=== PATIENT | male | born 1935 | race Caucasian/White ===

== ENCOUNTER 2018-06-22 17:43 | Emergency (ER) | payer MEDICARE, OTHER | END 2018-06-22 19:24 | disposition left against medical advice (07) | LOC: ER 17:44 | DX: K59.00 Constipation, unspecified (principal); Z53.21 Procedure and treatment not carried out due to patient leaving prior to being seen by health care provider ==

== ENCOUNTER 2018-07-09 06:05 | Inpatient (IN) | payer MEDICARE, OTHER ==
[2018-07-08 10:46] LABS: BASOPHILS # (AUTO) 0.1 X10'3 (0-0.2); BASOPHILS % (AUTO) 0.7 % (0-1); EOSINOPHILS # (AUTO) 0.2 X10'3 (0-0.9); EOSINOPHILS % (AUTO) 2.7 % (0-6); HEMATOCRIT 41.2 % (42.0-52.0); HEMOGLOBIN 13.9 g/dl (14.0-17.9); LYMPHOCYTES # (AUTO) 3.4 X10'3 (1.1-4.8); LYMPHOCYTES % (AUTO) 40.6 % (21-51); MEAN CORPUSCULAR HEMOGLOBIN 29.6 PG (27.0-31.0); MEAN CORPUSCULAR HGB CONC 33.8 g/dL (33.0-36.5); MEAN CORPUSCULAR VOLUME 87.6 FL (78-98); MEAN PLATELET VOLUME 7.3 FL (7.4-10.4); MONOCYTES # (AUTO) 0.4 X10'3 (0-0.9); MONOCYTES % (AUTO) 5.1 % (2-12); NEUTROPHILS # (AUTO) 4.3 X10'3 (1.8-7.7); NEUTROPHILS % (AUTO) 50.9 % (42-75); PLATELET COUNT 263 X10'3 (140-440); RED BLOOD COUNT 4.71 X10'6 (4.70-6.10); RED CELL DISTRIBUTION WIDTH 13.8 % (11.5-14.5); WHITE BLOOD COUNT 8.5 X10'3 (4.5-11.0)
[2018-07-08 10:50] LABS: ALBUMIN 3.8 G/DL (3.4-5.0); ANION GAP 8 (8-16); BLOOD UREA NITROGEN 15 MG/DL (7-18); CALCIUM 9.5 MG/DL (8.5-10.1); CHLORIDE 95 MMOL/L (99-107); CREATININE 1.25 MG/DL (0.60-1.10); GLUCOSE 76 MG/DL (70-104); POTASSIUM 4.8 MMOL/L (3.5-5.1); SODIUM 129 MMOL/L (135-145); TOTAL CARBON DIOXIDE 25.7 MMOL/L (24-32); eGFR 55 ML/MIN
[2018-07-08 10:55] LABS: PARTIAL THROMBOPLASTIN TIME 26 SECONDS (22-32)
[~2018-07-09] VITALS: Ht 172.7 cm; Wt 84.0 kg
[2018-07-09] VITALS (15 sets, daily range): BP systolic 92–132; BP diastolic 55–83
[2018-07-09] MEDS ORDERED: LORazepam 0.5 MG tablet PO PRN (06:25)
[2018-07-09] MEDS ORDERED: diphenhydrAMINE 25mg capsule PO PRN (06:25)
[2018-07-09] MEDS ORDERED: ATOR80TA PO (07:04)
[2018-07-09] MEDS ORDERED: DULO-31 PO (07:04)
[2018-07-09] MEDS ORDERED: CLOP75TA80 PO (07:04)
[2018-07-09] MEDS ORDERED: RANI-388 PO (07:04)
[2018-07-09] MEDS ORDERED: ASPI-1264 PO (07:04)
[2018-07-09] MEDS ORDERED: nitroGLYCERIN-Tridil 50MG/D5W 250 ML IV ONE ×2 (07:21→07:34)
[2018-07-09] MEDS ORDERED: LIDOcaine 1% (10mg/ml)w/preservative injection 20ml MDV ONE ×2 (07:22→07:34)
[2018-07-09] MEDS ORDERED: heparin 1,000unit/ml 10ml vial 10 ML ONE ×2 (07:22→07:34)
[2018-07-09] MEDS ORDERED: iohexol 350 MG/ML 50ML vial IV ONE ×3 (07:22→08:55)
[2018-07-09] MEDS ORDERED: fentaNYL/PF 50MCG/1 ML 2ML syringe ONE ×2 (07:22→07:34)
[2018-07-09] MEDS ORDERED: iohexol 350MG/ML 100ml bottle IV ONE ×2 (07:22→07:34)
[2018-07-09] MEDS ORDERED: midazolam 2 mg/2 ml injection ONE ×2 (07:22→07:34)
[2018-07-09] MEDS ORDERED: acetylcysteine 200 MG/ml 4ml vial PO ONE (07:25)
[2018-07-09] MEDS ORDERED: LIDOcaine/PRILOcaine 5gm cream TP ONE (07:25)
[2018-07-09] MEDS ORDERED: verapamil 2.5 mg/ml inj IV ONE (07:26)
[2018-07-09] MEDS ORDERED: heparin 1,000 UNITS/NS 500ml 500 ML ONE (08:56)
[2018-07-09 10:25] LABS: ISTAT HGB ART 12.6 g/dl (14.0-18.0); ISTAT Hct ART 37 %PCV (42-52); ISTAT O2 SATURATION ARTERIAL 97 % (95-98); ISTAT SOURCE ART
[2018-07-09] MEDS ORDERED: MESSAGE TO NURSING PO ONE ×2 (11:10→17:30)
[2018-07-09] MEDS ORDERED: dextrose 50%-water 50ml dispensing syringe IV PRN (11:10)
[2018-07-09] MEDS ORDERED: NUT.TX.IMPAIRED DIGEST FXN (Ensure Clear) 237 ML PO ONE (11:10)
[2018-07-09 11:21] LABS: ISTAT Hct MIX 38 %PCV (42-52); ISTAT O2 SATURATION MIX VENOUS 48 % (60-80); ISTAT SOURCE MIX
[2018-07-09] MEDS ORDERED: albumin (human) 25% 100 ML IV solution IV ONE (12:00)
[2018-07-09] MEDS ORDERED: sod chloride 0.9% 10ml flush syringe IV ONE (12:00)
[2018-07-09] MEDS ORDERED: sodium bicarbonate (8.4%) 1 mEq/ml syringe ONE ×3 (12:00)
[2018-07-09] MEDS ORDERED: rocuronium 10mg/ml inj IV ONE (12:00)
[2018-07-09] MEDS ORDERED: aminocaproic acid 250 MG/1 ML inj. ONE (12:00)
[2018-07-09] MEDS ORDERED: methylPREDNISolone sod. succ. 500mg inj ONE (12:00)
[2018-07-09] MEDS ORDERED: phenylephrine 10mg/ml inj. ONE (12:00)
[2018-07-09] MEDS ORDERED: heparin 1,000 units/ml 10ml inj ONE (12:00)
[2018-07-09] MEDS ORDERED: heparin 10,000 units/1 ML INJ ONE ×2 (12:00)
[2018-07-09] MEDS ORDERED: calcium chloride 100 MG/1 ML inj IV ONE (12:00)
[2018-07-09] MEDS ORDERED: LIDOcaine 2% (20 mg/ml) 5ml cardiac syringe ONE (12:00)
[2018-07-09] MEDS: normal saline 1,000 ML IV SCH ×2 (13:24→16:25)
--- NOTE | 2018-07-09 14:09 | NUR ---
CONTACTED , NEW ORDER GIVEN FOR PAIN MEDICATION.
[2018-07-09] MEDS ORDERED: acetaminophen 325mg tablet PO PRN (14:10)
[2018-07-09 15:58] LABS: ALBUMIN 3.8 G/DL (3.4-5.0); ANION GAP 7 (8-16); BLOOD UREA NITROGEN 14 MG/DL (7-18); BUN/CREATININE RATIO 11.5 (5.4-32.0); CALCIUM 9.2 MG/DL (8.5-10.1); CHLORIDE 98 MMOL/L (99-107); CREATININE 1.22 MG/DL (0.60-1.10); GLUCOSE 97 MG/DL (70-104); POTASSIUM 4.4 MMOL/L (3.5-5.1); SODIUM 132 MMOL/L (135-145); eGFR 57 ML/MIN
[2018-07-09 16:00] LABS: HEMOGLOBIN A1C 5.7 % (4.5-6.2)
[2018-07-09 16:05] LABS: ABG BASE EXCESS -2.6 mmol/L (-2.0-3.0); ABG OXYGEN SATURATION 96.8 % (95-98); ABG PCO2 (T) 33.1 mmHg (35.0-48.0); ABG PH (T) 7.421 (7.350-7.450); ABG PO2 (T) 82.4 mmHg (83-108); ALLEN'S TEST Positive; FCOHb 0.7 % (0.5-1.5); FMetHb 0.1 % (0.3-1.12); TOTAL HEMOGLOBIN 13.3 G/dl (14.0-18.0)
[2018-07-09 16:17] LABS: HEMATOCRIT 40.9 % (42.0-52.0); MEAN CORPUSCULAR HEMOGLOBIN 30.1 PG (27.0-31.0); MEAN CORPUSCULAR HGB CONC 34.3 g/dL (33.0-36.5); MEAN CORPUSCULAR VOLUME 87.7 FL (78-98); MEAN PLATELET VOLUME 7.4 FL (7.4-10.4); PLATELET COUNT 267 X10'3 (140-440); RED BLOOD COUNT 4.66 X10'6 (4.70-6.10); WHITE BLOOD COUNT 10.9 X10'3 (4.5-11.0)
[2018-07-09 16:34] LABS: PARTIAL THROMBOPLASTIN TIME 27 SECONDS (22-32)
--- NOTE | 2018-07-09 17:45 | NUR ---
Problems reprioritized. Patient report given, questions answered & plan of care reviewed with Hussein BOONE .
--- NOTE | 2018-07-09 17:45 | NUR ---
RECEIVED REPORT FROM SHORT STAY PATIENT WILL GO TO ROOM 310.
--- NOTE | 2018-07-09 18:15 | NUR ---
Patient in room MED 310. I have received report from Clarita and had the opportunity to ask questions and assume patient care.
[2018-07-09] MEDS ORDERED: ringers solution, lacted 1,000 ML IV ONE (19:58)
[2018-07-09] MEDS: metoprolol tartrate 12.5mg (1/2 tablet) PO SCH (20:01)
[2018-07-09] MEDS: ACETYLCYSTEINE 200 MG/1 ML 4 ML ORAL SOLUTION PO SCH (20:02)
[2018-07-10] VITALS (47 sets, daily range): BP systolic 67–146; BP diastolic 45–72
[2018-07-10] MEDS ORDERED: MESSAGE TO NURSING PO ONE ×3 (01:30→05:30)
[2018-07-10] MEDS: mupirocin 2% nasal ointment 1gm UD NS SCH ×3 (01:49→21:28)
[2018-07-10] MEDS ORDERED: gabapentin 400mg capsule PO ONE ×2 (05:00→05:30)
[2018-07-10] MEDS ORDERED: ROPIVAcaine 0.5% (5mg/ml) 30ml vial ONE (05:15)
[2018-07-10] MEDS ORDERED: ceFAZolin 1000mg inj ONE (05:15)
[2018-07-10] MEDS ORDERED: cefazolin/dext.iso 2gm/50ml 50 ML IV ONE (05:30)
[2018-07-10] MEDS ORDERED: insulin glargine (Lantus) pen - multi-dose SQ PRN (05:30)
[2018-07-10] MEDS ORDERED: vancomycin/NS 1 GM ADD-VANTAGE 250 ML IV ONE (05:30)
[2018-07-10 05:51] LABS: BASOPHILS # (AUTO) 0.1 X10'3 (0-0.2); BASOPHILS % (AUTO) 0.5 % (0-1); EOSINOPHILS # (AUTO) 0.2 X10'3 (0-0.9); EOSINOPHILS % (AUTO) 1.8 % (0-6); HEMATOCRIT 37.4 % (42.0-52.0); HEMOGLOBIN 12.6 g/dl (14.0-17.9); LYMPHOCYTES # (AUTO) 3.3 X10'3 (1.1-4.8); LYMPHOCYTES % (AUTO) 31.3 % (21-51); MEAN CORPUSCULAR HEMOGLOBIN 29.3 PG (27.0-31.0); MEAN CORPUSCULAR HGB CONC 33.8 g/dL (33.0-36.5); MEAN CORPUSCULAR VOLUME 86.9 FL (78-98); MEAN PLATELET VOLUME 7.1 FL (7.4-10.4); MONOCYTES # (AUTO) 0.3 X10'3 (0-0.9); MONOCYTES % (AUTO) 3.1 % (2-12); NEUTROPHILS # (AUTO) 6.6 X10'3 (1.8-7.7); NEUTROPHILS % (AUTO) 63.3 % (42-75); PLATELET COUNT 217 X10'3 (140-440); RED BLOOD COUNT 4.31 X10'6 (4.70-6.10); WHITE BLOOD COUNT 10.5 X10'3 (4.5-11.0)
[2018-07-10] MEDS ORDERED: famotidine 20mg tablet PO ONE (06:00)
[2018-07-10] MEDS ORDERED: LORazepam 2 mg/ml vial IV ONE (06:00)
--- NOTE | 2018-07-10 06:00 | NUR ---
Patient in room MED 310. I have received report from Obed Butts RN and had the opportunity to ask questions and assume patient care.
[2018-07-10 06:17] LABS: ALANINE AMINOTRANSFERASE 22 U/L (12-78); ALBUMIN 3.4 G/DL (3.4-5.0); ALBUMIN/GLOBULIN RATIO 1.2 (1.1-1.5); ALKALINE PHOSPHATASE 70 IU/L (46-116); ANION GAP 10 (8-16); ASPARTATE AMINO TRANSFERASE 36 U/L (10-37); BILIRUBIN,TOTAL 0.5 MG/DL (0.1-1.0); BLOOD UREA NITROGEN 13 MG/DL (7-18); BUN/CREATININE RATIO 10.2 (5.4-32.0); CALCIUM 9.1 MG/DL (8.5-10.1); CHLORIDE 98 MMOL/L (99-107); CHOL/HDL RATIO 2.1 (0.00-4.99); CHOLESTEROL 110 MG/DL (0-200); CREATININE 1.27 MG/DL (0.60-1.10); GLUCOSE 153 MG/DL (70-104); HDL CHOLESTEROL 52 MG/DL (35-60); LDL CHOLESTEROL 47 MG/DL (50-100); SODIUM 132 MMOL/L (135-145); TOTAL CARBON DIOXIDE 24.5 MMOL/L (24-32); TOTAL PROTEIN 6.2 G/DL (6.4-8.2); TRIGLYCERIDES 69 MG/DL (20-135); eGFR 54 ML/MIN
[2018-07-10] MEDS: normal saline 1,000 ML IV SCH ×3 (06:33→22:25)
--- NOTE | 2018-07-10 06:44 | NUR ---
OR here to talk to patient before surgery
[2018-07-10] MEDS ORDERED: midazolam 2 mg/2 ml injection ONE ×2 (06:50→18:54)
[2018-07-10] MEDS ORDERED: SUFENTANIL CITRATE 50 MCG/ML 2ml ampule IV ONE (06:50)
[2018-07-10] MEDS ORDERED: protamine sulf. 10mg/ml inj. IV ONE (07:01)
[2018-07-10] MEDS ORDERED: INSULIN R 100 UNIT in NS 100ML (1 UNIT/1 ML) BAG IV ONE (07:01)
[2018-07-10] MEDS ORDERED: isoflurane 100ml inhalation liquid IH ONE (07:01)
[2018-07-10] MEDS ORDERED: DOPamine/D5W 400mg/250ml bag IV ONE (07:01)
[2018-07-10] MEDS ORDERED: nitroGLYCERIN in D5W 50mg/250ml (Tridil) infusion IV ONE (07:01)
--- NOTE | 2018-07-10 07:15 | NUR ---
Pt. about to head to OR
[2018-07-10 07:45] LABS: ABG BASE EXCESS -2.3 mmol/L (-2.0-3.0); ABG OXYGEN SATURATION 99.6 % (95-98); ABG PCO2 41.4 mmHg (35.0-45.0); ABG PH 7.362 (7.350-7.450); ABG PO2 502.7 mmHg (60.0-100.0); CL (ABG) 100 mmol/L (99-107); FCOHb 0.3 % (0.5-1.5); FMetHb 0.3 % (0.3-1.12); GLUCOSE (ABG) 92 mg/dl (70-105); IONIZED CA (ABG) 1.15 mmol/L (1.03-1.32); K (ABG) 3.8 mmol/L (3.3-5.1); NA (ABG) 127 mmol/L (135-145)
[2018-07-10] MEDS ORDERED: atorvastatin 20mg tablet PO SCH (08:00)
[2018-07-10] MEDS ORDERED: aspirin 325mg tablet PO SCH (08:00)
[2018-07-10 08:35] LABS: ABG BASE EXCESS VENOUS -1.7 mmol/L; ABG HCO3 VENOUS 23.7 mmol/L; ABG PCO2 VENOUS 42.7 mmHg; ABG PO2 VENOUS 52.2 mmHg; CL (ABG) 99 mmol/L (99-107); FCOHb VENOUS 0.5 %; FHHb VENOUS 12.7 %; FMetHb VENOUS 0.3 %; FO2Hb VENOUS 86.5 %; GLUCOSE (ABG) 107 mg/dl (70-105); IONIZED CA (ABG) 1.15 mmol/L (1.03-1.32); K (ABG) 4.2 mmol/L (3.3-5.1); NA (ABG) 126 mmol/L (135-145); TOTAL HEMOGLOBIN 11.4 G/dl (14.0-18.0)
[2018-07-10] MEDS ORDERED: ipratropium/albuterol 3ml nebule IH PRN (08:50)
[2018-07-10 08:55] LABS: ABG PCO2 27.6 mmHg (35.0-45.0); ABG PO2 466.2 mmHg (60.0-100.0)
[2018-07-10 08:56] LABS: ABG BASE EXCESS -1.7 mmol/L (-2.0-3.0); ABG OXYGEN SATURATION 99.3 % (95-98); CL (ABG) 95 mmol/L (99-107); FCOHb 0.2 % (0.5-1.5); FMetHb 0.4 % (0.3-1.12); FO2Hb 98.7 % (94-100); GLUCOSE (ABG) 100 mg/dl (70-105); IONIZED CA (ABG) 0.94 mmol/L (1.03-1.32); K (ABG) 3.8 mmol/L (3.3-5.1); NA (ABG) 123 mmol/L (135-145); TOTAL HEMOGLOBIN 7.6 G/dl (14.0-18.0)
[2018-07-10 09:00] LABS: ABG BASE EXCESS VENOUS -0.2 mmol/L; ABG HCO3 VENOUS 23.4 mmol/L; ABG PCO2 VENOUS 33.3 mmHg; ABG PO2 VENOUS 46.5 mmHg; CL (ABG) 95 mmol/L (99-107); FCOHb VENOUS 1.3 %; FHHb VENOUS 12.4 %; FMetHb VENOUS 0.6 %; FO2Hb VENOUS 85.7 %; GLUCOSE (ABG) 104 mg/dl (70-105); IONIZED CA (ABG) 0.97 mmol/L (1.03-1.32); NA (ABG) 123 mmol/L (135-145); TOTAL HEMOGLOBIN 7.6 G/dl (14.0-18.0)
[2018-07-10] MEDS ORDERED: phenylephrine 10mg/ml inj. ONE (09:01)
[2018-07-10] MEDS ORDERED: rocuronium 10mg/ml inj IV ONE (09:01)
[2018-07-10] MEDS ORDERED: LIDOcaine 2% (20mg/ml) 5ml vial ONE (09:01)
[2018-07-10] MEDS ORDERED: propofol inj 20 ML IV ONE (09:01)
[2018-07-10 09:15] LABS: ABG BASE EXCESS -1.5 mmol/L (-2.0-3.0); ABG HCO3 22.5 mmol/L (22.0-26.0); ABG OXYGEN SATURATION 99.7 % (95-98); ABG PCO2 34.4 mmHg (35.0-45.0); ABG PH 7.433 (7.350-7.450); ABG PO2 385.5 mmHg (60.0-100.0); CL (ABG) 97 mmol/L (99-107); FCOHb 0.8 % (0.5-1.5); FMetHb 0.2 % (0.3-1.12); FO2Hb 98.7 % (94-100); GLUCOSE (ABG) 107 mg/dl (70-105); IONIZED CA (ABG) 0.97 mmol/L (1.03-1.32); K (ABG) 4.2 mmol/L (3.3-5.1); NA (ABG) 125 mmol/L (135-145); TOTAL HEMOGLOBIN 7.4 G/dl (14.0-18.0)
[2018-07-10 09:35] LABS: ACT @ 1.70 U 336 SEC (193-297); ACT @ 2.84 U 531 SEC (260-420); BASELINE ACT 147 SEC (101-148); PATIENT WEIGHT 76.0k KG
[2018-07-10 09:40] LABS: ABG BASE EXCESS -5.2 mmol/L (-2.0-3.0); ABG OXYGEN SATURATION 99.3 % (95-98); ABG PCO2 37.9 mmHg (35.0-45.0); ABG PH 7.341 (7.350-7.450); ABG PO2 342.9 mmHg (60.0-100.0); CL (ABG) 98 mmol/L (99-107); FCOHb 0.4 % (0.5-1.5); FMetHb 0.6 % (0.3-1.12); FO2Hb 98.3 % (94-100); GLUCOSE (ABG) 120 mg/dl (70-105); K (ABG) 4.3 mmol/L (3.3-5.1); NA (ABG) 125 mmol/L (135-145); TOTAL HEMOGLOBIN 8.8 G/dl (14.0-18.0)
[2018-07-10 09:55] LABS: ABG BASE EXCESS -1.4 mmol/L (-2.0-3.0); ABG HCO3 23.9 mmol/L (22.0-26.0); ABG OXYGEN SATURATION 99.3 % (95-98); ABG PH 7.363 (7.350-7.450); ABG PO2 353.9 mmHg (60.0-100.0); CL (ABG) 97 mmol/L (99-107); FCOHb 0.4 % (0.5-1.5); FMetHb 0.6 % (0.3-1.12); FO2Hb 98.3 % (94-100); GLUCOSE (ABG) 124 mg/dl (70-105); IONIZED CA (ABG) 1.16 mmol/L (1.03-1.32); K (ABG) 4.2 mmol/L (3.3-5.1); NA (ABG) 125 mmol/L (135-145); TOTAL HEMOGLOBIN 8.9 G/dl (14.0-18.0)
[2018-07-10 10:35] LABS: ABG BASE EXCESS VENOUS -2.4 mmol/L; ABG HCO3 VENOUS 23.4 mmol/L; ABG PCO2 VENOUS 44.5 mmHg; ABG PO2 VENOUS 39.7 mmHg; CL (ABG) 101 mmol/L (99-107); FCOHb VENOUS 0.8 %; FHHb VENOUS 25.5 %; FMetHb VENOUS 0.4 %; FO2Hb VENOUS 73.3 %; GLUCOSE (ABG) 125 mg/dl (70-105); IONIZED CA (ABG) 1.16 mmol/L (1.03-1.32); K (ABG) 3.8 mmol/L (3.3-5.1); NA (ABG) 127 mmol/L (135-145); TOTAL HEMOGLOBIN 10.6 G/dl (14.0-18.0)
[2018-07-10] MEDS ORDERED: niCARDipine-NS 40mg/200ml IVPB 200 ML IV PRN (10:42)
[2018-07-10] MEDS ORDERED: nitroGLYCERIN-Tridil 50MG/D5W 250 ML IV PRN (10:42)
[2018-07-10] MEDS ORDERED: sodium phosphate inj. 30 MMOL in dextrose 5%-water 250 ML IV PRN (10:45)
[2018-07-10] MEDS ORDERED: HYDROcodone/acetaminophen 10/325mg tab PO PRN ×2 (10:45)
[2018-07-10] MEDS ORDERED: dextrose 50%-water 50ml dispensing syringe IV PRN (10:45)
[2018-07-10] MEDS ORDERED: Neutra Phos packet PO PRN (10:45)
[2018-07-10] MEDS ORDERED: magnesium 4gm in 100ml NS 100 ML IV PRN ×2 (10:45→21:45)
[2018-07-10] MEDS ORDERED: insulin regular, human inj. 100 UNITS in normal saline 100ml IV soln 100 ML IV SCH ×2 (10:45)
[2018-07-10] MEDS ORDERED: acetaminophen 325mg tablet PO PRN (10:45)
[2018-07-10] MEDS ORDERED: metoclopramide 5 mg/ml inj IV PRN (10:45)
[2018-07-10] MEDS ORDERED: potassium Cl 20 mEq SR tablet PO PRN (10:45)
[2018-07-10] MEDS ORDERED: sodium phosphate inj. 15 MMOL in dextrose 5%-water 150 ML IV PRN (10:45)
[2018-07-10] MEDS ORDERED: ondansetron/PF 4mg/2ml inj IV PRN (10:45)
[2018-07-10] MEDS ORDERED: pantoprazole 40 MG vial IV ONE (10:45)
[2018-07-10] MEDS ORDERED: magnesium hydroxide 30ml (MOM) UD suspension PO PRN (10:45)
[2018-07-10] MEDS: insulin regular, human 100 UNIT in normal saline 100ml IV soln 100 ML IV SCH ×4 (10:51→23:02)
[2018-07-10] MEDS: duloxetine 30mg CAPSULE.DR PO SCH (10:51)
[2018-07-10] MEDS: metoprolol tartrate 12.5mg (1/2 tablet) PO SCH (10:52)
[2018-07-10] MEDS: ACETYLCYSTEINE 200 MG/1 ML 4 ML ORAL SOLUTION PO SCH ×2 (10:52→20:00)
[2018-07-10] MEDS: famotidine 20mg tablet PO SCH (10:52)
[2018-07-10] MEDS: insulin Lispro (HumaLOG) vial - multi-dose SQ SCH ×2 (10:53→18:00)
--- NOTE | 2018-07-10 11:15 | NUR ---
Received to room 2042, accompanied by Dr. Lucero and surgical crew. Placed on ventilator, to child monitor, arterial line and PA line pressure monitored. Chest tubes to suction at 20 cm. Rushing cath to gravity drainage. Dressings are dry and intact. See assessment record. All vasoactive drugs are infusing via central line.
[2018-07-10] MEDS: albumin (Human) 5% 250ml 250 ML IV PRN ×6 (11:30→21:34)
[2018-07-10 11:33] LABS: BASOPHILS % (AUTO) 0.2 % (0-1); EOSINOPHILS # (AUTO) 0.2 X10'3 (0-0.9); EOSINOPHILS % (AUTO) 1.3 % (0-6); HEMATOCRIT 23.4 % (42.0-52.0); LYMPHOCYTES % (AUTO) 23.1 % (21-51); MEAN CORPUSCULAR HEMOGLOBIN 29.4 PG (27.0-31.0); MEAN CORPUSCULAR HGB CONC 34.2 g/dL (33.0-36.5); MEAN PLATELET VOLUME 7.8 FL (7.4-10.4); MONOCYTES # (AUTO) 0.6 X10'3 (0-0.9); MONOCYTES % (AUTO) 4.3 % (2-12); NEUTROPHILS # (AUTO) 9.3 X10'3 (1.8-7.7); NEUTROPHILS % (AUTO) 71.1 % (42-75); PLATELET COUNT 180 X10'3 (140-440); RED BLOOD COUNT 2.72 X10'6 (4.70-6.10); RED CELL DISTRIBUTION WIDTH 13.9 % (11.5-14.5)
[2018-07-10 11:42] LABS: INR 1.8 INR; PARTIAL THROMBOPLASTIN TIME 35 SECONDS (22-32)
[2018-07-10] MEDS ORDERED: albumin (Human) 5% 250ml 750 ML IV ONE (11:45)
[2018-07-10 11:52] LABS: ALANINE AMINOTRANSFERASE 20 U/L (12-78); ALBUMIN 3.1 G/DL (3.4-5.0); ALBUMIN/GLOBULIN RATIO 2.6 (1.1-1.5); ALKALINE PHOSPHATASE 26 IU/L (46-116); ANION GAP 10 (8-16); ASPARTATE AMINO TRANSFERASE 27 U/L (10-37); BASOPHILS % (AUTO) 0.2 % (0-1); BILIRUBIN,TOTAL 0.7 MG/DL (0.1-1.0); BLOOD UREA NITROGEN 11 MG/DL (7-18); BUN/CREATININE RATIO 10.9 (5.4-32.0); CHLORIDE 102 MMOL/L (99-107); CREATININE 1.01 MG/DL (0.60-1.10); EOSINOPHILS # (AUTO) 0.1 X10'3 (0-0.9); EOSINOPHILS % (AUTO) 1.1 % (0-6); GLUCOSE 149 MG/DL (70-104); HEMOGLOBIN 7.4 g/dl (14.0-17.9); LYMPHOCYTES # (AUTO) 2.9 X10'3 (1.1-4.8); LYMPHOCYTES % (AUTO) 22.1 % (21-51); MAGNESIUM 1.4 MG/DL (1.5-2.4); MEAN CORPUSCULAR HEMOGLOBIN 29.6 PG (27.0-31.0); MEAN CORPUSCULAR HGB CONC 34.5 g/dL (33.0-36.5); MEAN CORPUSCULAR VOLUME 85.8 FL (78-98); MEAN PLATELET VOLUME 7.7 FL (7.4-10.4); MONOCYTES # (AUTO) 0.6 X10'3 (0-0.9); MONOCYTES % (AUTO) 4.7 % (2-12); NEUTROPHILS # (AUTO) 9.3 X10'3 (1.8-7.7); NEUTROPHILS % (AUTO) 71.9 % (42-75); PHOSPHORUS 2.8 MG/DL (2.3-4.5); PLATELET COUNT 168 X10'3 (140-440); POTASSIUM 3.8 MMOL/L (3.5-5.1); RED BLOOD COUNT 2.51 X10'6 (4.70-6.10); RED CELL DISTRIBUTION WIDTH 14.1 % (11.5-14.5); SODIUM 135 MMOL/L (135-145); TOTAL CARBON DIOXIDE 23.4 MMOL/L (24-32); TOTAL PROTEIN 4.3 G/DL (6.4-8.2); eGFR 71 ML/MIN
[2018-07-10 11:58] LABS: HEMATOCRIT 21.5 % (42.0-52.0)
--- NOTE | 2018-07-10 12:00 | NUR ---
Dr. Lucero arrived on unit and assessed pt, updated on pt condition and critical lab values, 1U PRBC order received. levophed order received and titrating to keep MAP > 65. Electroyle replacement per protocol. updated family on plan of care.
[2018-07-10] MEDS: sodium chloride 0.45% 1,000 ML IV SCH (12:03)
[2018-07-10] MEDS: potassium Cl 20mEq/100mL bag 100 ML IV PRN ×3 (12:04→14:18)
[2018-07-10] MEDS ORDERED: NORepinephrine 8mg/ 250ml NS 250 ML IV ONE (12:13)
[2018-07-10] MEDS: NORepinephrine 8mg/ 250ml NS 250 ML IV SCH (12:18)
[2018-07-10] MEDS: magnesium 2GM in 50ml NS 50 ML IV PRN ×3 (12:19→22:01)
[2018-07-10 12:50] LABS: ABG BASE EXCESS -6.7 mmol/L (-2.0-3.0); ABG HCO3 18.8 mmol/L (22.0-26.0); ABG OXYGEN SATURATION 98.8 % (95-98); ABG PCO2 (T) 34.6 mmHg (35.0-48.0); ABG PH (T) 7.344 (7.350-7.450); ABG PO2 (T) 230.8 mmHg (83-108); FCOHb 0.3 % (0.5-1.5); FMetHb 0.1 % (0.3-1.12); FO2Hb 98.4 % (94-100); MINUTE VOLUME 6 L/min; PATIENT TEMPERATURE 35.1; PEEP 5 cm H2O; RESPIRATORY RATE 10 b/min; RESPIRATORY RATE (OBSERVED) 10 b/min; TIDAL VOLUME 600 mL; TOTAL HEMOGLOBIN 7.2 G/dl (14.0-18.0)
[2018-07-10] MEDS: gabapentin 300mg capsule PO SCH ×2 (13:05→21:00)
[2018-07-10] MEDS: DOPamine 400mg/D5W 250ml 250 ML IV SCH (13:07)
[2018-07-10 13:22] LABS: INR 1.7 INR; PARTIAL THROMBOPLASTIN TIME 48 SECONDS (22-32)
[2018-07-10 13:24] LABS: BASOPHILS % (AUTO) 0.2 % (0-1); EOSINOPHILS % (AUTO) 0.3 % (0-6); LYMPHOCYTES # (AUTO) 1.9 X10'3 (1.1-4.8); LYMPHOCYTES % (AUTO) 21.1 % (21-51); MEAN CORPUSCULAR HEMOGLOBIN 31.4 PG (27.0-31.0); MEAN CORPUSCULAR HGB CONC 35.9 g/dL (33.0-36.5); MEAN CORPUSCULAR VOLUME 87.3 FL (78-98); MEAN PLATELET VOLUME 7.2 FL (7.4-10.4); MONOCYTES # (AUTO) 0.4 X10'3 (0-0.9); MONOCYTES % (AUTO) 4.4 % (2-12); NEUTROPHILS # (AUTO) 6.7 X10'3 (1.8-7.7); PLATELET COUNT 164 X10'3 (140-440); RED CELL DISTRIBUTION WIDTH 13.8 % (11.5-14.5); WHITE BLOOD COUNT 9.1 X10'3 (4.5-11.0)
[2018-07-10 13:34] LABS: HEMATOCRIT 16.6 % (42.0-52.0)
--- NOTE | 2018-07-10 13:41 | NUR ---
Dr. Lucero called via [facility] PILOT[facility] Devries regarding critical lab values and chest tube output. 2U PRBC and 20U cryo order received.
[2018-07-10 14:01] LABS: ACTIVATED CLOTTING TIME 137 SEC (101-148)
[2018-07-10] MEDS ORDERED: CLOP75TA15 PO (14:22)
[2018-07-10] MEDS ORDERED: MELA3TAB PO (14:22)
--- NOTE | 2018-07-10 15:07 | NUR ---
Dr. Lucero arrived on unit and assessed pt, updated on CT output and will update on in the next hour with output. order receive to transfuse one unit of PRBC for hemaglobin < 7.
[2018-07-10 15:10] LABS: BASOPHILS % (AUTO) 0.1 % (0-1); EOSINOPHILS % (AUTO) 0.1 % (0-6); LYMPHOCYTES # (AUTO) 1.6 X10'3 (1.1-4.8); LYMPHOCYTES % (AUTO) 19.9 % (21-51); MEAN CORPUSCULAR HEMOGLOBIN 29.6 PG (27.0-31.0); MEAN CORPUSCULAR HGB CONC 34.4 g/dL (33.0-36.5); MEAN CORPUSCULAR VOLUME 86.1 FL (78-98); MEAN PLATELET VOLUME 6.9 FL (7.4-10.4); MONOCYTES # (AUTO) 0.4 X10'3 (0-0.9); MONOCYTES % (AUTO) 5.5 % (2-12); NEUTROPHILS # (AUTO) 5.9 X10'3 (1.8-7.7); NEUTROPHILS % (AUTO) 74.4 % (42-75); PLATELET COUNT 111 X10'3 (140-440); RED CELL DISTRIBUTION WIDTH 13.8 % (11.5-14.5); WHITE BLOOD COUNT 7.9 X10'3 (4.5-11.0)
[2018-07-10 15:15] LABS: HEMOGLOBIN 6.2 g/dl (14.0-17.9)
[2018-07-10 15:22] LABS: INR 1.4 INR
--- NOTE | 2018-07-10 15:43 | NUR ---
Nutrition consult: Pt s/p CABG x 4. Pt remains in ICU at this time, will need education once approproate. Addendum: 07/10/18 at [address] Amended: Links added.
[2018-07-10] MEDS ORDERED: ceFAZolin 1GM/D5W- ADD-VANTAGE 50 ML IV SCH (16:00)
[2018-07-10 16:24] LABS: BASOPHILS % (AUTO) 0.1 % (0-1); EOSINOPHILS % (AUTO) 0.1 % (0-6); HEMATOCRIT 23.3 % (42.0-52.0); HEMOGLOBIN 8.1 g/dl (14.0-17.9); LYMPHOCYTES # (AUTO) 1.6 X10'3 (1.1-4.8); LYMPHOCYTES % (AUTO) 21.9 % (21-51); MEAN CORPUSCULAR HEMOGLOBIN 30.4 PG (27.0-31.0); MEAN CORPUSCULAR HGB CONC 34.7 g/dL (33.0-36.5); MEAN CORPUSCULAR VOLUME 87.5 FL (78-98); MEAN PLATELET VOLUME 7.3 FL (7.4-10.4); MONOCYTES # (AUTO) 0.3 X10'3 (0-0.9); MONOCYTES % (AUTO) 4.2 % (2-12); NEUTROPHILS # (AUTO) 5.2 X10'3 (1.8-7.7); NEUTROPHILS % (AUTO) 73.7 % (42-75); PLATELET COUNT 133 X10'3 (140-440); RED BLOOD COUNT 2.66 X10'6 (4.70-6.10); WHITE BLOOD COUNT 7.1 X10'3 (4.5-11.0)
[2018-07-10 16:38] LABS: INR 1.3 INR; PARTIAL THROMBOPLASTIN TIME 38 SECONDS (22-32)
[2018-07-10 17:39] LABS: BASOPHILS % (AUTO) 0.1 % (0-1); EOSINOPHILS % (AUTO) 0.1 % (0-6); HEMOGLOBIN 7.6 g/dl (14.0-17.9); LYMPHOCYTES # (AUTO) 1.8 X10'3 (1.1-4.8); LYMPHOCYTES % (AUTO) 23.1 % (21-51); MEAN CORPUSCULAR HEMOGLOBIN 30.8 PG (27.0-31.0); MEAN CORPUSCULAR HGB CONC 35.4 g/dL (33.0-36.5); MEAN CORPUSCULAR VOLUME 87.1 FL (78-98); MEAN PLATELET VOLUME 7.4 FL (7.4-10.4); MONOCYTES # (AUTO) 0.3 X10'3 (0-0.9); MONOCYTES % (AUTO) 3.5 % (2-12); NEUTROPHILS # (AUTO) 5.8 X10'3 (1.8-7.7); NEUTROPHILS % (AUTO) 73.2 % (42-75); PLATELET COUNT 144 X10'3 (140-440); RED BLOOD COUNT 2.48 X10'6 (4.70-6.10); RED CELL DISTRIBUTION WIDTH 14.1 % (11.5-14.5); WHITE BLOOD COUNT 7.9 X10'3 (4.5-11.0)
[2018-07-10 17:44] LABS: HEMATOCRIT 21.6 % (42.0-52.0)
--- NOTE | 2018-07-10 17:45 | NUR ---
Dr. Lucero called regarding CI 1.[address] output and last H&H. order received to give 250ml albumin x1 dose, and to turn dopamine to 2mcg.
[2018-07-10 17:47] LABS: ALBUMIN 2.4 G/DL (3.4-5.0); ANION GAP 7 (8-16); BLOOD UREA NITROGEN 10 MG/DL (7-18); BUN/CREATININE RATIO 10.4 (5.4-32.0); CALCIUM 6.8 MG/DL (8.5-10.1); CHLORIDE 113 MMOL/L (99-107); CREATININE 0.96 MG/DL (0.60-1.10); GLUCOSE 124 MG/DL (70-104); MAGNESIUM 2.5 MG/DL (1.5-2.4); PHOSPHORUS 1.3 MG/DL (2.3-4.5); POTASSIUM 4.3 MMOL/L (3.5-5.1); SODIUM 139 MMOL/L (135-145); eGFR 75 ML/MIN
[2018-07-10] MEDS ORDERED: albumin (Human) 5% 250ml 250 ML IV ONE (17:50)
--- NOTE | 2018-07-10 18:10 | NUR ---
Pt became hypotensive and bradycardic. CT drained out 550ml. Titrated levophed to 30mcg and pacer turned on at 80bpm. Dr. Lucero called and notified, order received for CXR and 2U PRBC to be transfused. Dr. Magana arrived on unit and assessed pt, OR crewed called per Dr. Magana.
[2018-07-10] MEDS ORDERED: midazolam 2 mg/2 ml injection IJ ONE (18:54)
[2018-07-10] MEDS ORDERED: midazolam 100mg in NS 100ml 100 ML IV PRN (18:55)
[2018-07-10 19:31] LABS: ABG BASE EXCESS -19.6 mmol/L (-2.0-3.0); ABG HCO3 10.3 mmol/L (22.0-26.0); ABG PCO2 (T) 40.3 mmHg (35.0-48.0); ABG PH (T) 7.027 (7.350-7.450); ABG PO2 (T) 119.3 mmHg (83-108); FCOHb 0.2 % (0.5-1.5); FMetHb 0.3 % (0.3-1.12); FO2Hb 96.5 % (94-100); PEEP 5 cm H2O; RESPIRATORY RATE 10 b/min; RESPIRATORY RATE (OBSERVED) 10 b/min; TIDAL VOLUME 600 mL; TOTAL HEMOGLOBIN 10.5 G/dl (14.0-18.0)
[2018-07-10 19:50] LABS: ABG BASE EXCESS -7.5 mmol/L (-2.0-3.0); ABG HCO3 17.2 mmol/L (22.0-26.0); ABG OXYGEN SATURATION 98.8 % (95-98); ABG PCO2 (T) 28.8 mmHg (35.0-48.0); ABG PH (T) 7.385 (7.350-7.450); ABG PO2 (T) 315.3 mmHg (83-108); FCOHb 0.3 % (0.5-1.5); FO2Hb 98.5 % (94-100); MINUTE VOLUME 10 L/min; PEEP 5 cm H2O; RESPIRATORY RATE 16 b/min; RESPIRATORY RATE (OBSERVED) 16 b/min; TIDAL VOLUME 600 mL; TOTAL HEMOGLOBIN 8.1 G/dl (14.0-18.0)
[2018-07-10] MEDS ORDERED: mupirocin 2% ointment 22GM NS SCH (20:00)
[2018-07-10] MEDS: docusate sod 100mg capsule PO SCH (20:00)
[2018-07-10 20:21] LABS: BASOPHILS % (AUTO) 0.3 % (0-1); EOSINOPHILS % (AUTO) 0.2 % (0-6); LYMPHOCYTES # (AUTO) 0.3 X10'3 (1.1-4.8); MEAN CORPUSCULAR HEMOGLOBIN 32.7 PG (27.0-31.0); MEAN CORPUSCULAR HGB CONC 33.8 g/dL (33.0-36.5); MEAN CORPUSCULAR VOLUME 96.5 FL (78-98); MEAN PLATELET VOLUME 8.9 FL (7.4-10.4); MONOCYTES # (AUTO) 0.1 X10'3 (0-0.9); MONOCYTES % (AUTO) 4.5 % (2-12); NEUTROPHILS # (AUTO) 0.8 X10'3 (1.8-7.7); PLATELET COUNT 563 X10'3 (140-440); RED BLOOD COUNT 1.61 X10'6 (4.70-6.10); RED CELL DISTRIBUTION WIDTH 13.7 % (11.5-14.5); WHITE BLOOD COUNT 1.1 X10'3 (4.5-11.0)
[2018-07-10 20:23] LABS: HEMOGLOBIN 5.3 g/dl (14.0-17.9)
[2018-07-10 20:24] LABS: HEMATOCRIT 15.5 % (42.0-52.0)
[2018-07-10 20:30] LABS: ALANINE AMINOTRANSFERASE 31 U/L (12-78); ALKALINE PHOSPHATASE 28 IU/L (46-116); ANION GAP 31 (8-16); ASPARTATE AMINO TRANSFERASE 15 U/L (10-37); BILIRUBIN,TOTAL 0.3 MG/DL (0.1-1.0); BLOOD UREA NITROGEN 7 MG/DL (7-18); BUN/CREATININE RATIO 10.9 (5.4-32.0); CHLORIDE 104 MMOL/L (99-107); CREATININE 0.64 MG/DL (0.60-1.10); GLUCOSE 308 MG/DL (70-104); MAGNESIUM 1.3 MG/DL (1.5-2.4); PHOSPHORUS 2.7 MG/DL (2.3-4.5); SODIUM 148 MMOL/L (135-145); eGFR > 90 ML/MIN
[2018-07-10 20:32] LABS: CALCIUM 5.7 MG/DL (8.5-10.1)
[2018-07-10 20:33] LABS: INR 1.4 INR
[2018-07-10 20:36] LABS: ABG BASE EXCESS -8.8 mmol/L (-2.0-3.0); ABG HCO3 14.7 mmol/L (22.0-26.0); ABG OXYGEN SATURATION 98.9 % (95-98); ABG PCO2 (T) 23.7 mmHg (35.0-48.0); ABG PH (T) 7.403 (7.350-7.450); ABG PO2 (T) 419.7 mmHg (83-108); FCOHb 0.2 % (0.5-1.5); FMetHb 0.2 % (0.3-1.12); FO2Hb 98.5 % (94-100); MINUTE VOLUME 10 L/min; PATIENT TEMPERATURE 35.5; PEEP 5 cm H2O; RESPIRATORY RATE 16 b/min; RESPIRATORY RATE (OBSERVED) 16 b/min; TIDAL VOLUME 600 mL; TOTAL HEMOGLOBIN 11.9 G/dl (14.0-18.0)
--- NOTE | 2018-07-10 20:47 | NUR ---
Problems reprioritized. Patient report given, questions answered & plan of care reviewed with OSCAR Wiggins.
[2018-07-10 20:53] LABS: BASOPHILS % (AUTO) 0.2 % (0-1); EOSINOPHILS % (AUTO) 0.1 % (0-6); HEMATOCRIT 34.1 % (42.0-52.0); HEMOGLOBIN 11.8 g/dl (14.0-17.9); LYMPHOCYTES % (AUTO) 18.7 % (21-51); MEAN CORPUSCULAR HEMOGLOBIN 30.4 PG (27.0-31.0); MEAN CORPUSCULAR HGB CONC 34.6 g/dL (33.0-36.5); MEAN CORPUSCULAR VOLUME 87.9 FL (78-98); MEAN PLATELET VOLUME 8.5 FL (7.4-10.4); MONOCYTES # (AUTO) 0.5 X10'3 (0-0.9); MONOCYTES % (AUTO) 9.4 % (2-12); NEUTROPHILS # (AUTO) 3.7 X10'3 (1.8-7.7); NEUTROPHILS % (AUTO) 71.6 % (42-75); PLATELET COUNT 62 X10'3 (140-440); RED BLOOD COUNT 3.87 X10'6 (4.70-6.10); RED CELL DISTRIBUTION WIDTH 14.1 % (11.5-14.5); WHITE BLOOD COUNT 5.2 X10'3 (4.5-11.0)
[2018-07-10] MEDS: vancomycin/NS 1 GM ADD-VANTAGE 250 ML IV SCH (21:28)
[2018-07-10] MEDS ORDERED: calcium chloride 100 MG/1 ML inj IV ONE (21:46)
[2018-07-10 22:04] LABS: PLATELET ESTIMATE INCREASED; TOTAL CELLS COUNTED 100
[2018-07-10 22:05] LABS: ANISOCYTOSIS FEW
[2018-07-10] MEDS ORDERED: calcium chloride inj. 1,000 MG in normal saline 100ml IV soln 90 ML IV ONE (22:05)
[2018-07-10 22:06] LABS: POIKILOCYTOSIS 2+
[2018-07-10 22:10] LABS: BURR CELLS 2+
[2018-07-11] VITALS (29 sets, daily range): BP systolic 88–139; BP diastolic 51–77
[2018-07-11] MEDS: morphine 4 MG/ML inj SYRINge IV PRN ×4 (01:47→21:43)
[2018-07-11 02:54] LABS: BASOPHILS % (AUTO) 0.1 % (0-1); EOSINOPHILS % (AUTO) 0 % (0-6); LYMPHOCYTES # (AUTO) 0.9 X10'3 (1.1-4.8); LYMPHOCYTES % (AUTO) 22.7 % (21-51); MEAN CORPUSCULAR HEMOGLOBIN 30.5 PG (27.0-31.0); MEAN CORPUSCULAR HGB CONC 34.6 g/dL (33.0-36.5); MEAN CORPUSCULAR VOLUME 88.2 FL (78-98); MEAN PLATELET VOLUME 8.4 FL (7.4-10.4); MONOCYTES # (AUTO) 0.3 X10'3 (0-0.9); MONOCYTES % (AUTO) 6.7 % (2-12); NEUTROPHILS # (AUTO) 2.8 X10'3 (1.8-7.7); NEUTROPHILS % (AUTO) 70.5 % (42-75); PLATELET COUNT 87 X10'3 (140-440); RED BLOOD COUNT 2.15 X10'6 (4.70-6.10); RED CELL DISTRIBUTION WIDTH 13.8 % (11.5-14.5)
[2018-07-11 02:58] LABS: HEMOGLOBIN 6.6 g/dl (14.0-17.9)
[2018-07-11 03:12] LABS: ALANINE AMINOTRANSFERASE 21 U/L (12-78); ALBUMIN 2.3 G/DL (3.4-5.0); ALBUMIN/GLOBULIN RATIO 1.6 (1.1-1.5); ALKALINE PHOSPHATASE 23 IU/L (46-116); ANION GAP 11 (8-16); ASPARTATE AMINO TRANSFERASE 23 U/L (10-37); BILIRUBIN,TOTAL 1.5 MG/DL (0.1-1.0); BLOOD UREA NITROGEN 11 MG/DL (7-18); BUN/CREATININE RATIO 9.9 (5.4-32.0); CALCIUM 7.2 MG/DL (8.5-10.1); CHLORIDE 114 MMOL/L (99-107); CREATININE 1.11 MG/DL (0.60-1.10); GLUCOSE 124 MG/DL (70-104); MAGNESIUM 3.5 MG/DL (1.5-2.4); POTASSIUM 3.7 MMOL/L (3.5-5.1); SODIUM 143 MMOL/L (135-145); TOTAL CARBON DIOXIDE 17.6 MMOL/L (24-32); TOTAL PROTEIN 3.7 G/DL (6.4-8.2); eGFR 63 ML/MIN
[2018-07-11 03:16] LABS: PHOSPHORUS 1.2 MG/DL (2.3-4.5)
[2018-07-11 03:25] LABS: ABG BASE EXCESS -6.7 mmol/L (-2.0-3.0); ABG HCO3 16.5 mmol/L (22.0-26.0); ABG OXYGEN SATURATION 98.7 % (95-98); ABG PO2 (T) 270.3 mmHg (83-108); FCOHb 0.3 % (0.5-1.5); FMetHb 0.3 % (0.3-1.12); FO2Hb 98.1 % (94-100); MINUTE VOLUME 10 L/min; PATIENT TEMPERATURE 36.2; PEEP 5 cm H2O; RESPIRATORY RATE 16 b/min; RESPIRATORY RATE (OBSERVED) 16 b/min; TIDAL VOLUME 600 mL; TOTAL HEMOGLOBIN 6.3 G/dl (14.0-18.0)
[2018-07-11 03:32] LABS: PLATELET ESTIMATE DECREASED; TOTAL CELLS COUNTED 100
[2018-07-11 05:56] LABS: BASOPHILS % (AUTO) 0.2 % (0-1); EOSINOPHILS % (AUTO) 0 % (0-6); HEMATOCRIT 26.1 % (42.0-52.0); HEMOGLOBIN 9.1 g/dl (14.0-17.9); LYMPHOCYTES # (AUTO) 1.2 X10'3 (1.1-4.8); LYMPHOCYTES % (AUTO) 19.6 % (21-51); MEAN CORPUSCULAR HEMOGLOBIN 30.3 PG (27.0-31.0); MEAN CORPUSCULAR HGB CONC 34.9 g/dL (33.0-36.5); MEAN CORPUSCULAR VOLUME 86.9 FL (78-98); MEAN PLATELET VOLUME 8.2 FL (7.4-10.4); MONOCYTES # (AUTO) 0.3 X10'3 (0-0.9); MONOCYTES % (AUTO) 5.6 % (2-12); NEUTROPHILS # (AUTO) 4.5 X10'3 (1.8-7.7); NEUTROPHILS % (AUTO) 74.6 % (42-75); PLATELET COUNT 83 X10'3 (140-440); RED CELL DISTRIBUTION WIDTH 14.2 % (11.5-14.5); WHITE BLOOD COUNT 6.1 X10'3 (4.5-11.0)
[2018-07-11] MEDS: ceFAZolin 1GM/D5W- ADD-VANTAGE 50 ML IV SCH ×3 (06:02→21:52)
[2018-07-11 06:05] LABS: INR 1.2 INR
--- NOTE | 2018-07-11 06:30 | NUR ---
Patient in room ICU 2042. I have received report from donaldo and had the opportunity to ask questions and assume patient care.
[2018-07-11] MEDS ORDERED: albumin (human) 25% 100 ML IV solution IV ONE (07:40)
[2018-07-11] MEDS: metoprolol tartrate 12.5mg (1/2 tablet) PO SCH ×2 (08:00→20:00)
[2018-07-11] MEDS ORDERED: aspirin 325mg tablet, delayed-release (Ecotrin) PO SCH (08:00)
[2018-07-11] MEDS: duloxetine 30mg CAPSULE.DR PO SCH (08:00)
[2018-07-11] MEDS: docusate sod 100mg capsule PO SCH (08:00)
[2018-07-11] MEDS: gabapentin 300mg capsule PO SCH ×3 (08:28→21:42)
[2018-07-11] MEDS: atorvastatin 10mg tablet PO SCH (08:28)
[2018-07-11] MEDS: vancomycin/NS 1 GM ADD-VANTAGE 250 ML IV SCH ×2 (08:29→20:15)
[2018-07-11] MEDS: ACETYLCYSTEINE 200 MG/1 ML 4 ML ORAL SOLUTION PO SCH ×2 (08:29→20:15)
[2018-07-11] MEDS: insulin Lispro (HumaLOG) vial - multi-dose SQ SCH ×3 (09:00→14:15)
[2018-07-11] MEDS: normal saline 1,000 ML IV SCH ×2 (09:03→18:25)
--- NOTE | 2018-07-11 10:00 | NUR ---
update to numerous md's, pa's, rt's, daughter and , etc. 25% albumin given for low filling pressures. replacing phos. ci at 2.1 to 2.2. pt opens eyes, becomes anxious with care- verded boluses given and pain med with relief. fio2 to 60%. ct output at 10 cc/hr x 4 hrs, then at [address] thorne aware
[2018-07-11 10:30] LABS: ABG HCO3 17.1 mmol/L (22.0-26.0); ABG OXYGEN SATURATION 96.6 % (95-98); ABG PCO2 (T) 25.5 mmHg (35.0-48.0); ABG PH (T) 7.444 (7.350-7.450); ABG PO2 (T) 92.3 mmHg (83-108); ALLEN'S TEST Positive; FCOHb 0.2 % (0.5-1.5); FMetHb 0.1 % (0.3-1.12); FO2Hb 96.3 % (94-100); MINUTE VOLUME 9 L/min; PEEP 5 cm H2O; RESPIRATORY RATE 14 b/min; RESPIRATORY RATE (OBSERVED) 14 b/min; TIDAL VOLUME 600 mL; TOTAL HEMOGLOBIN 8.7 G/dl (14.0-18.0)
--- NOTE | 2018-07-11 11:35 | NUR ---
abg's per rt as etco2 at 19- rr decreased to 10, along with fio2 to 55%. wt up 20 kg, update to katelin hogue, will leave ns at 100cc/hr.- filling pressures up. uo adequate
[2018-07-11 13:20] LABS: HEMOGLOBIN 7.9 g/dl (14.0-17.9); MEAN CORPUSCULAR HGB CONC 34.6 g/dL (33.0-36.5); MEAN CORPUSCULAR VOLUME 86.7 FL (78-98); MEAN PLATELET VOLUME 8.5 FL (7.4-10.4); PLATELET COUNT 75 X10'3 (140-440); RED BLOOD COUNT 2.65 X10'6 (4.70-6.10); RED CELL DISTRIBUTION WIDTH 14.5 % (11.5-14.5); WHITE BLOOD COUNT 6.7 X10'3 (4.5-11.0)
[2018-07-11 13:30] LABS: INR 1.2 INR
[2018-07-11 13:31] LABS: PARTIAL THROMBOPLASTIN TIME 35 SECONDS (22-32)
[2018-07-11 13:34] LABS: ALANINE AMINOTRANSFERASE 14 U/L (12-78); ALBUMIN 2.5 G/DL (3.4-5.0); ALBUMIN/GLOBULIN RATIO 1.8 (1.1-1.5); ALKALINE PHOSPHATASE 24 IU/L (46-116); ANION GAP 6 (8-16); ASPARTATE AMINO TRANSFERASE 24 U/L (10-37); BILIRUBIN,TOTAL 0.9 MG/DL (0.1-1.0); BLOOD UREA NITROGEN 12 MG/DL (7-18); BUN/CREATININE RATIO 12.2 (5.4-32.0); CALCIUM 7.2 MG/DL (8.5-10.1); CHLORIDE 115 MMOL/L (99-107); CREATININE 0.98 MG/DL (0.60-1.10); GLUCOSE 130 MG/DL (70-104); MAGNESIUM 2.8 MG/DL (1.5-2.4); PHOSPHORUS 3.9 MG/DL (2.3-4.5); POTASSIUM 4.1 MMOL/L (3.5-5.1); SODIUM 141 MMOL/L (135-145); TOTAL CARBON DIOXIDE 19.6 MMOL/L (24-32); TOTAL PROTEIN 3.9 G/DL (6.4-8.2); eGFR 73 ML/MIN
--- NOTE | 2018-07-11 14:00 | NUR ---
labs drawn, dr miles in- updated re vs, etc. labs updated to andrey hogue- no blood products ordered. ct output small amts. abgs drawn- improving
[2018-07-11] MEDS: potassium Cl 20mEq/100mL bag 100 ML IV PRN (14:56)
[2018-07-11 16:30] LABS: ABG BASE EXCESS -5.9 mmol/L (-2.0-3.0); ABG HCO3 19.6 mmol/L (22.0-26.0); ABG OXYGEN SATURATION 94.9 % (95-98); ABG PCO2 (T) 38.3 mmHg (35.0-48.0); ABG PH (T) 7.327 (7.350-7.450); ALLEN'S TEST Positive; FCOHb 0.3 % (0.5-1.5); FMetHb 0.2 % (0.3-1.12); FO2Hb 94.4 % (94-100); MINUTE VOLUME 6 L/min; RESPIRATORY RATE 10 b/min; RESPIRATORY RATE (OBSERVED) 10 b/min; TIDAL VOLUME 600 mL; TOTAL HEMOGLOBIN 8.6 G/dl (14.0-18.0)
--- NOTE | 2018-07-11 18:30 | NUR ---
Patient in room ICU 2042. I have received report from day shift RN and had the opportunity to ask questions and assume patient care. Pt received orally intubated #8.0 ETT @ 23cm teeth. On SIMV FIO2 50% TV 600 RATE 10, +5 PEEP PS10 O2 sat is 100% ETT secured with anchorfast, OGT secured to ETT. On dopamine & versed drips. Epicardial pacing wires connected to pacemaker in off position. Chest tubes x2 with thin blood tinged drainage. Moves right hand/toes to command.
[2018-07-11 19:42] LABS: BASOPHILS % (AUTO) 0.1 % (0-1); EOSINOPHILS % (AUTO) 0 % (0-6); HEMATOCRIT 23.4 % (42.0-52.0); HEMOGLOBIN 8.1 g/dl (14.0-17.9); LYMPHOCYTES # (AUTO) 1.4 X10'3 (1.1-4.8); LYMPHOCYTES % (AUTO) 17.9 % (21-51); MEAN CORPUSCULAR HEMOGLOBIN 30.2 PG (27.0-31.0); MEAN CORPUSCULAR HGB CONC 34.4 g/dL (33.0-36.5); MEAN CORPUSCULAR VOLUME 87.8 FL (78-98); MEAN PLATELET VOLUME 8.8 FL (7.4-10.4); MONOCYTES # (AUTO) 0.6 X10'3 (0-0.9); MONOCYTES % (AUTO) 7.3 % (2-12); NEUTROPHILS # (AUTO) 5.7 X10'3 (1.8-7.7); NEUTROPHILS % (AUTO) 74.7 % (42-75); PLATELET COUNT 80 X10'3 (140-440); RED BLOOD COUNT 2.67 X10'6 (4.70-6.10); RED CELL DISTRIBUTION WIDTH 14.8 % (11.5-14.5); WHITE BLOOD COUNT 7.6 X10'3 (4.5-11.0)
[2018-07-11 19:51] LABS: MAGNESIUM 2.7 MG/DL (1.5-2.4); PHOSPHORUS 4.3 MG/DL (2.3-4.5); POTASSIUM 4.7 MMOL/L (3.5-5.1)
[2018-07-11] MEDS ORDERED: docusate sodium 100mg/10ml UD cup NG SCH (20:12)
[2018-07-11] MEDS ORDERED: acetaminophen 325mg/10.15ml oral unit dose solution NG PRN ×2 (20:13)
[2018-07-12] VITALS (25 sets, daily range): BP systolic 95–150; BP diastolic 51–83
--- NOTE | 2018-07-12 | NUR ---
No changes. Resting comfortably post morphine given for pain. No distress.
[2018-07-12] MEDS: morphine 4 MG/ML inj SYRINge IV PRN ×2 (01:15→04:18)
[2018-07-12 03:15] LABS: ABG BASE EXCESS -6.7 mmol/L (-2.0-3.0); ABG HCO3 18.1 mmol/L (22.0-26.0); ABG OXYGEN SATURATION 95.7 % (95-98); ABG PCO2 (T) 32.4 mmHg (35.0-48.0); ABG PH (T) 7.363 (7.350-7.450); ALLEN'S TEST Positive; FCOHb 0.3 % (0.5-1.5); FMetHb 0.1 % (0.3-1.12); FO2Hb 95.3 % (94-100); MINUTE VOLUME 7 L/min; PATIENT TEMPERATURE 36.5; PEEP 5 cm H2O; RESPIRATORY RATE 10 b/min; RESPIRATORY RATE (OBSERVED) 13 b/min; TIDAL VOLUME 600 mL; TOTAL HEMOGLOBIN 8.4 G/dl (14.0-18.0)
[2018-07-12 03:48] LABS: BASOPHILS % (AUTO) 0 % (0-1); EOSINOPHILS % (AUTO) 0 % (0-6); HEMATOCRIT 22.8 % (42.0-52.0); HEMOGLOBIN 7.8 g/dl (14.0-17.9); LYMPHOCYTES # (AUTO) 1.2 X10'3 (1.1-4.8); LYMPHOCYTES % (AUTO) 15.8 % (21-51); MEAN CORPUSCULAR HEMOGLOBIN 29.9 PG (27.0-31.0); MEAN CORPUSCULAR HGB CONC 34.1 g/dL (33.0-36.5); MEAN CORPUSCULAR VOLUME 87.9 FL (78-98); MONOCYTES # (AUTO) 0.5 X10'3 (0-0.9); MONOCYTES % (AUTO) 7.3 % (2-12); NEUTROPHILS # (AUTO) 5.7 X10'3 (1.8-7.7); NEUTROPHILS % (AUTO) 76.9 % (42-75); PLATELET COUNT 86 X10'3 (140-440); RED BLOOD COUNT 2.59 X10'6 (4.70-6.10); RED CELL DISTRIBUTION WIDTH 14.8 % (11.5-14.5); WHITE BLOOD COUNT 7.4 X10'3 (4.5-11.0)
[2018-07-12 03:57] LABS: ALBUMIN 2.5 G/DL (3.4-5.0); ANION GAP 7 (8-16); BLOOD UREA NITROGEN 13 MG/DL (7-18); BUN/CREATININE RATIO 12.5 (5.4-32.0); CALCIUM 7.7 MG/DL (8.5-10.1); CHLORIDE 114 MMOL/L (99-107); CREATININE 1.04 MG/DL (0.60-1.10); GLUCOSE 118 MG/DL (70-104); MAGNESIUM 2.6 MG/DL (1.5-2.4); PHOSPHORUS 3.7 MG/DL (2.3-4.5); POTASSIUM 4.7 MMOL/L (3.5-5.1); SODIUM 142 MMOL/L (135-145); TOTAL CARBON DIOXIDE 21.3 MMOL/L (24-32); eGFR 68 ML/MIN
[2018-07-12] MEDS: ceFAZolin 1GM/D5W- ADD-VANTAGE 50 ML IV SCH (04:57)
--- NOTE | 2018-07-12 05:03 | NUR ---
0500..Orientee documentation: I have reviewed and agree with all interventions, assessments performed and documented by Keyonna MOORE
[2018-07-12] MEDS: DOPamine 400mg/D5W 250ml 250 ML IV SCH (05:18)
--- NOTE | 2018-07-12 06:12 | NUR ---
Problems reprioritized. Patient report given, questions answered & plan of care reviewed with day shift RN.
--- NOTE | 2018-07-12 06:30 | NUR ---
Patient in room ICU 2042. I have received report from aura and had the opportunity to ask questions and assume patient care.
[2018-07-12] MEDS ORDERED: pantoprazole 40mg Tablet.DR PO SCH (07:30)
[2018-07-12] MEDS: ACETYLCYSTEINE 200 MG/1 ML 4 ML ORAL SOLUTION PO SCH (08:00)
[2018-07-12] MEDS: duloxetine 30mg CAPSULE.DR PO SCH (08:00)
[2018-07-12] MEDS: atorvastatin 10mg tablet PO SCH (08:59)
[2018-07-12] MEDS: famotidine 20mg tablet PO SCH (09:00)
[2018-07-12] MEDS: gabapentin 300mg capsule PO SCH (09:00)
[2018-07-12] MEDS: insulin Lispro (HumaLOG) vial - multi-dose SQ SCH ×2 (09:00→13:00)
[2018-07-12] MEDS: metoprolol tartrate 12.5mg (1/2 tablet) PO SCH ×2 (09:01→20:03)
[2018-07-12] MEDS ORDERED: furosemide 20 MG/2 ML vial IV ONE (09:25)
--- NOTE | 2018-07-12 09:30 | NUR ---
versed off at 0630, to spont at 0745, extubated at 093. eyes open hoarse voice- bu more alert. laura schultz called of extubation
[2018-07-12] MEDS: sodium chloride 0.45% 1,000 ML IV SCH ×2 (10:42→18:10)
[2018-07-12] MEDS: NORepinephrine 8mg/ 250ml NS 250 ML IV SCH (12:10)
--- NOTE | 2018-07-12 16:59 | NUR ---
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 on ra- tolerating well. confused int re time, events reoriented. pa line out, dopamine and levo off- tolerating well. family at bs. not met hyperglycemic protocol.
--- NOTE | 2018-07-12 18:45 | NUR ---
Patient in room ICU 2042. I have received report from Rox MOORE and had the opportunity to ask questions and assume patient care.
[2018-07-12] MEDS ORDERED: acetaminophen 325mg tablet PO PRN ×2 (19:37→19:38)
[2018-07-12] MEDS: docusate sod 100mg capsule PO SCH (20:03)
[2018-07-12] MEDS: enoxaparin 30mg/0.3ml syringe SUBCUT SCH (20:03)
[2018-07-13] VITALS (24 sets, daily range): BP systolic 99–143; BP diastolic 51–80
--- NOTE | 2018-07-13 00:28 | NUR ---
i called Dr Lucero at this time to let him know that pt went into afib at 2345. rate 140-150's. he is aware. he gave order to give amiodarone bolus and start drip per protocol. orders entered. continue to monitor. Addendum: 07/13/18 at 0049 by Mau Polk RN wrong patient. my bad
[2018-07-13 04:44] LABS: ALBUMIN 2.6 G/DL (3.4-5.0); ANION GAP 6 (8-16); BASOPHILS % (AUTO) 0 % (0-1); BLOOD UREA NITROGEN 17 MG/DL (7-18); BUN/CREATININE RATIO 17.3 (5.4-32.0); CALCIUM 8.1 MG/DL (8.5-10.1); CHLORIDE 108 MMOL/L (99-107); CREATININE 0.98 MG/DL (0.60-1.10); EOSINOPHILS % (AUTO) 0 % (0-6); GLUCOSE 125 MG/DL (70-104); HEMATOCRIT 22.5 % (42.0-52.0); HEMOGLOBIN 7.7 g/dl (14.0-17.9); LYMPHOCYTES # (AUTO) 1.2 X10'3 (1.1-4.8); LYMPHOCYTES % (AUTO) 14.4 % (21-51); MAGNESIUM 2.1 MG/DL (1.5-2.4); MEAN CORPUSCULAR HEMOGLOBIN 29.9 PG (27.0-31.0); MEAN PLATELET VOLUME 8.3 FL (7.4-10.4); MONOCYTES # (AUTO) 0.3 X10'3 (0-0.9); MONOCYTES % (AUTO) 3.4 % (2-12); NEUTROPHILS # (AUTO) 7.1 X10'3 (1.8-7.7); NEUTROPHILS % (AUTO) 82.2 % (42-75); PHOSPHORUS 2.6 MG/DL (2.3-4.5); PLATELET COUNT 100 X10'3 (140-440); POTASSIUM 4.5 MMOL/L (3.5-5.1); RED BLOOD COUNT 2.55 X10'6 (4.70-6.10); RED CELL DISTRIBUTION WIDTH 14.4 % (11.5-14.5); SODIUM 139 MMOL/L (135-145); TOTAL CARBON DIOXIDE 25.1 MMOL/L (24-32); WHITE BLOOD COUNT 8.7 X10'3 (4.5-11.0); eGFR 73 ML/MIN
[2018-07-13] MEDS: magnesium 2GM in 50ml NS 50 ML IV PRN ×2 (05:19→19:26)
--- NOTE | 2018-07-13 06:27 | NUR ---
Problems reprioritized. Patient report given, questions answered & plan of care reviewed with Rox MOORE.
--- NOTE | 2018-07-13 06:30 | NUR ---
Patient in room ICU 2042. I have received report from ana maría and had the opportunity to ask questions and assume patient care.
[2018-07-13] MEDS ORDERED: aspirin 325mg tablet, delayed-release (Ecotrin) PO SCH (08:00)
[2018-07-13] MEDS: metoprolol tartrate 12.5mg (1/2 tablet) PO SCH ×2 (08:24→19:28)
[2018-07-13] MEDS: duloxetine 30mg CAPSULE.DR PO SCH (08:24)
[2018-07-13] MEDS: atorvastatin 10mg tablet PO SCH (08:24)
[2018-07-13] MEDS: enoxaparin 30mg/0.3ml syringe SUBCUT SCH ×2 (08:25→19:27)
[2018-07-13] MEDS: docusate sod 100mg capsule PO SCH ×2 (08:25→19:27)
[2018-07-13] MEDS: aspirin 81mg tab.chew PO SCH (08:32)
[2018-07-13] MEDS ORDERED: furosemide 40mg/4ml inj IV ONE (09:25)
--- NOTE | 2018-07-13 10:00 | NUR ---
pt awake, alert, at times forgetful. pt stood at bs with PT- tolerated fair- but anable to tx to chair today. pt denies pain, but c/o acid- queasy - zofran given- 2mg- effective. ivf dcd and lasix given with good results.
[2018-07-13 17:17] LABS: MAGNESIUM 2.2 MG/DL (1.5-2.4); PHOSPHORUS 2.7 MG/DL (2.3-4.5); POTASSIUM 4.3 MMOL/L (3.5-5.1)
--- NOTE | 2018-07-13 18:28 | NUR ---
[address] large diuresis post lasix- labs checked- will replace k and mag. pt denies pain- cooperative, stood with pt
--- NOTE | 2018-07-13 18:30 | NUR ---
Patient in room ICU 2042. I have received report from Rox MOORE and had the opportunity to ask questions and assume patient care.
[2018-07-13] MEDS: potassium Cl 20mEq/100mL bag 100 ML IV PRN ×2 (18:31→23:26)
--- NOTE | 2018-07-13 19:51 | NUR ---
Daughter was at bedside. went home at this time.
[2018-07-14] VITALS (15 sets, daily range): BP systolic 99–137; BP diastolic 57–71
[2018-07-14 03:45] LABS: BASOPHILS % (AUTO) 0.1 % (0-1); EOSINOPHILS % (AUTO) 0.1 % (0-6); HEMOGLOBIN 7.6 g/dl (14.0-17.9); LYMPHOCYTES # (AUTO) 1.5 X10'3 (1.1-4.8); LYMPHOCYTES % (AUTO) 15.4 % (21-51); MEAN CORPUSCULAR HEMOGLOBIN 30.4 PG (27.0-31.0); MEAN CORPUSCULAR HGB CONC 34.5 g/dL (33.0-36.5); MEAN PLATELET VOLUME 7.8 FL (7.4-10.4); MONOCYTES # (AUTO) 0.6 X10'3 (0-0.9); MONOCYTES % (AUTO) 6.5 % (2-12); NEUTROPHILS # (AUTO) 7.7 X10'3 (1.8-7.7); NEUTROPHILS % (AUTO) 77.9 % (42-75); PLATELET COUNT 112 X10'3 (140-440); RED CELL DISTRIBUTION WIDTH 14.5 % (11.5-14.5); WHITE BLOOD COUNT 9.9 X10'3 (4.5-11.0)
[2018-07-14 03:54] LABS: ALBUMIN 2.5 G/DL (3.4-5.0); ANION GAP 3 (8-16); BLOOD UREA NITROGEN 20 MG/DL (7-18); BUN/CREATININE RATIO 20.6 (5.4-32.0); CHLORIDE 105 MMOL/L (99-107); CREATININE 0.97 MG/DL (0.60-1.10); GLUCOSE 106 MG/DL (70-104); MAGNESIUM 2.3 MG/DL (1.5-2.4); PHOSPHORUS 2.5 MG/DL (2.3-4.5); POTASSIUM 4.6 MMOL/L (3.5-5.1); SODIUM 135 MMOL/L (135-145); TOTAL CARBON DIOXIDE 27.1 MMOL/L (24-32); eGFR 74 ML/MIN
[2018-07-14] MEDS: magnesium 2GM in 50ml NS 50 ML IV PRN (05:16)
--- NOTE | 2018-07-14 06:33 | NUR ---
Problems reprioritized. Patient report given, questions answered & plan of care reviewed with Art RN.
[2018-07-14] MEDS: docusate sod 100mg capsule PO SCH ×2 (07:30→20:32)
[2018-07-14] MEDS: atorvastatin 10mg tablet PO SCH (07:30)
[2018-07-14] MEDS: duloxetine 30mg CAPSULE.DR PO SCH (07:30)
[2018-07-14] MEDS: famotidine 20mg tablet PO SCH (07:31)
[2018-07-14] MEDS: metoprolol tartrate 12.5mg (1/2 tablet) PO SCH ×2 (07:31→20:32)
[2018-07-14] MEDS: aspirin 81mg tab.chew PO SCH (07:31)
[2018-07-14] MEDS: enoxaparin 30mg/0.3ml syringe SUBCUT SCH (07:33)
[2018-07-14] MEDS ORDERED: potassium Cl 40MEQ/NS 500ml 500 ML IV PRN ×2 (10:25)
[2018-07-14] MEDS ORDERED: magnesium 4gm in 100ml NS 100 ML IV PRN (10:25)
[2018-07-14] MEDS ORDERED: magnesium Cl slow-release 64mg tablet PO PRN (10:25)
[2018-07-14] MEDS ORDERED: magnesium 2GM in 50ml NS 50 ML IV PRN (10:25)
[2018-07-14] MEDS ORDERED: potassium Cl 20 mEq SR tablet PO PRN ×2 (10:25)
[2018-07-14] MEDS: pantoprazole 40mg Tablet.DR PO SCH (11:00)
--- NOTE | 2018-07-14 11:05 | NUR ---
Initial: Pt/family seen by IDANIA for written/verbal CABG ed w/ RD contact information provided. Pt agrees to cottage cheese w/ fruit BIDLD; IDANIA d/w dietary. Pt is on CHO controlled diet though no hx DM; to advance to regular/NCS today per RN. IDANIA d/w dietary. Pt reports low appetite but improving; LBM 4/15 likely causing decreased PO though ~50-75% last meals. On routine colace w/ MoM PRN; RN and credit charge authorizer aware of constipation. Will monitor for additional protein/bowel care needs post-op. Rec: 1. advance to NCS diet per MD 2. cottage cheese w/ fruit BIDLD 3. routine bowel care 4. wt per rx Addendum: 07/14/18 at [address] Amended: Links added.
--- NOTE | 2018-07-14 13:59 | NUR ---
pt transferred to [facility]
--- NOTE | 2018-07-14 18:00 | NUR ---
Patient in room MED 316. I have received report from Bebeto, RN and had the opportunity to ask questions and assume patient care.
[2018-07-14] MEDS: potassium Cl 20 mEq SR tablet PO SCH (19:46)
[2018-07-14] MEDS: magnesium Cl slow-release 64mg tablet PO SCH (20:32)
[2018-07-15 02:00] VITALS: BP 135/68
--- NOTE | 2018-07-15 06:10 | NUR ---
Problems reprioritized. Patient report given, questions answered & plan of care reviewed with OSCAR Horowitz.
[2018-07-15 06:19] LABS: BASOPHILS % (AUTO) 0.2 % (0-1); EOSINOPHILS # (AUTO) 0.4 X10'3 (0-0.9); EOSINOPHILS % (AUTO) 3.6 % (0-6); HEMATOCRIT 26.8 % (42.0-52.0); HEMOGLOBIN 9.3 g/dl (14.0-17.9); LYMPHOCYTES # (AUTO) 2.1 X10'3 (1.1-4.8); MEAN CORPUSCULAR HEMOGLOBIN 30.4 PG (27.0-31.0); MEAN CORPUSCULAR HGB CONC 34.6 g/dL (33.0-36.5); MEAN CORPUSCULAR VOLUME 87.9 FL (78-98); MEAN PLATELET VOLUME 7.6 FL (7.4-10.4); MONOCYTES # (AUTO) 0.9 X10'3 (0-0.9); MONOCYTES % (AUTO) 8.7 % (2-12); NEUTROPHILS # (AUTO) 7.1 X10'3 (1.8-7.7); NEUTROPHILS % (AUTO) 67.5 % (42-75); PLATELET COUNT 183 X10'3 (140-440); RED BLOOD COUNT 3.05 X10'6 (4.70-6.10); RED CELL DISTRIBUTION WIDTH 14.3 % (11.5-14.5); WHITE BLOOD COUNT 10.5 X10'3 (4.5-11.0)
[2018-07-15 06:35] LABS: ALBUMIN 2.7 G/DL (3.4-5.0); ANION GAP 3 (8-16); BLOOD UREA NITROGEN 16 MG/DL (7-18); CALCIUM 8.7 MG/DL (8.5-10.1); CHLORIDE 103 MMOL/L (99-107); GLUCOSE 98 MG/DL (70-104); MAGNESIUM 1.9 MG/DL (1.5-2.4); POTASSIUM 3.8 MMOL/L (3.5-5.1); SODIUM 134 MMOL/L (135-145); TOTAL CARBON DIOXIDE 27.7 MMOL/L (24-32); eGFR 72 ML/MIN
[2018-07-15 07:00] VITALS: BP 146/73
[2018-07-15] MEDS: K and/or MAG REPLACEMENT MC SCH (08:00)
[2018-07-15] MEDS: duloxetine 30mg CAPSULE.DR PO SCH (08:09)
[2018-07-15] MEDS: metoprolol tartrate 12.5mg (1/2 tablet) PO SCH ×2 (08:09→20:46)
[2018-07-15] MEDS: docusate sod 100mg capsule PO SCH ×2 (08:09→20:44)
[2018-07-15] MEDS: potassium Cl 20 mEq SR tablet PO SCH ×2 (08:09→20:45)
[2018-07-15] MEDS: aspirin 81mg tab.chew PO SCH (08:09)
[2018-07-15] MEDS: atorvastatin 10mg tablet PO SCH (08:09)
[2018-07-15] MEDS: magnesium Cl slow-release 64mg tablet PO SCH ×2 (08:09→20:45)
[2018-07-15] MEDS: pantoprazole 40mg Tablet.DR PO SCH (08:09)
[2018-07-15 11:00] VITALS: BP 109/59
[2018-07-15 15:12] VITALS: BP 131/77
[2018-07-15 18:00] VITALS: BP 144/79
--- NOTE | 2018-07-15 18:00 | NUR ---
Patient in room MED 316. I have received report from OSCAR Horowitz and had the opportunity to ask questions and assume patient care.
--- NOTE | 2018-07-15 18:30 | NUR ---
Problems reprioritized. Patient report given, questions answered & plan of care reviewed with Mariely MOORE.
[2018-07-15 22:00] VITALS: BP 146/75
--- NOTE | 2018-07-15 22:45 | NUR ---
After walking patient, I changed the dressing from the Chest tube site that was removed today. It had began to bleed from under the clear dressing after we began our walk. The Charge nurse, Myah was present and helped me to clean and redress this area. I applied sterile 4x4s and clear dressing over the site. We finished the walk approx. 50 ft and I got the patient back to bed. I also changed urostomy bad due to it becoming wet and soiled from the CT site drainage. It was at this time that I began to clean up the room the patient asked my who the 3 people standing against the wall by the update board ini the room. There were no persons other than myself and the patient present in the room at this time. I began performing a neuro check and the patient answered name and appropriatly, the current president, the year and that he knew he was in the hospital. He began to laugh and when I asked if he could still see the people by the wall, he stated that he could and that they were strange. I reoriented him and told him that there were boxes of gloves and the update board. He state he could still see the people. I will continue to monitor this patient.
[2018-07-16 02:00] VITALS: BP 132/69
[2018-07-16 05:28] LABS: BASOPHILS % (AUTO) 0.1 % (0-1); EOSINOPHILS # (AUTO) 0.4 X10'3 (0-0.9); EOSINOPHILS % (AUTO) 3.6 % (0-6); HEMATOCRIT 27.1 % (42.0-52.0); HEMOGLOBIN 9.3 g/dl (14.0-17.9); LYMPHOCYTES # (AUTO) 2.4 X10'3 (1.1-4.8); MEAN CORPUSCULAR HEMOGLOBIN 30.7 PG (27.0-31.0); MEAN CORPUSCULAR HGB CONC 34.4 g/dL (33.0-36.5); MEAN CORPUSCULAR VOLUME 89.1 FL (78-98); MEAN PLATELET VOLUME 7.5 FL (7.4-10.4); MONOCYTES # (AUTO) 0.9 X10'3 (0-0.9); MONOCYTES % (AUTO) 7.6 % (2-12); NEUTROPHILS # (AUTO) 7.7 X10'3 (1.8-7.7); NEUTROPHILS % (AUTO) 67.7 % (42-75); RED BLOOD COUNT 3.04 X10'6 (4.70-6.10); RED CELL DISTRIBUTION WIDTH 14.3 % (11.5-14.5); WHITE BLOOD COUNT 11.4 X10'3 (4.5-11.0)
[2018-07-16 05:46] LABS: ALBUMIN 2.5 G/DL (3.4-5.0); ANION GAP 6 (8-16); BLOOD UREA NITROGEN 16 MG/DL (7-18); CALCIUM 8.4 MG/DL (8.5-10.1); CHLORIDE 102 MMOL/L (99-107); GLUCOSE 99 MG/DL (70-104); MAGNESIUM 1.7 MG/DL (1.5-2.4); PHOSPHORUS 3.1 MG/DL (2.3-4.5); POTASSIUM 4.2 MMOL/L (3.5-5.1); SODIUM 136 MMOL/L (135-145); TOTAL CARBON DIOXIDE 27.6 MMOL/L (24-32); eGFR 72 ML/MIN
[2018-07-16 06:00] VITALS: BP 134/74
--- NOTE | 2018-07-16 06:00 | NUR ---
Problems reprioritized. Patient report given, questions answered & plan of care reviewed with OSCAR Otto.
[2018-07-16 06:52] LABS: PLATELET COUNT 225 X10'3 (140-440)
[2018-07-16] MEDS: magnesium Cl slow-release 64mg tablet PO SCH ×3 (07:38→22:00)
[2018-07-16] MEDS: potassium Cl 20 mEq SR tablet PO SCH ×2 (07:38→19:21)
[2018-07-16] MEDS: pantoprazole 40mg Tablet.DR PO SCH (07:39)
[2018-07-16] MEDS: metoprolol tartrate 12.5mg (1/2 tablet) PO SCH ×2 (07:39→18:51)
[2018-07-16] MEDS: docusate sod 100mg capsule PO SCH ×2 (07:40→19:21)
[2018-07-16] MEDS: atorvastatin 10mg tablet PO SCH (07:40)
[2018-07-16] MEDS: famotidine 20mg tablet PO SCH (07:40)
[2018-07-16] MEDS: aspirin 81mg tab.chew PO SCH (07:40)
[2018-07-16] MEDS: duloxetine 30mg CAPSULE.DR PO SCH (07:41)
[2018-07-16] MEDS: High Protein Shake w/Arg/Glut/Ca2+Bmb (Juven 19.3gm) pkt 240ml PO SCH ×3 (07:42→18:55)
[2018-07-16] MEDS: K and/or MAG REPLACEMENT MC SCH (07:42)
[2018-07-16 11:00] VITALS: BP 117/67
--- NOTE | 2018-07-16 14:45 | NUR ---
PATIENT TRYING TO GO INTO AFIB CALLED CED TOLBERT AND INFORMED HIM OF PATIENT FREQUENTLY DROPPING P-WAVES SINCE 1425 ORDER TO GIVE SLO-MAG REPLACEMENT PO
[2018-07-16 15:00] VITALS: BP 124/64
--- NOTE | 2018-07-16 15:00 | NUR ---
CED TOLBERT PRESENT TO CHECK ON PATIENT AND TO SEE ABOUT AFIB PATIENT WORKED WITH PHYSICAL THERAPY AMBULATED 200 FEET WITH FWW, WHEN HE RETURNED TO BED HE WAS BACK IN SINUS RHYTHM HR OF 83. CED TOBLERT AWARE, PO MAGNESIUM GIVEN.
[2018-07-16 18:00] VITALS: BP 124/64
[2018-07-16 22:00] VITALS: BP 129/67
--- NOTE | 2018-07-16 22:00 | NUR ---
Second dose of Mg replacement given per protocol
[2018-07-17] VITALS (7 sets, daily range): BP systolic 111–138; BP diastolic 58–75
[2018-07-17 05:29] LABS: BASOPHILS # (AUTO) 0.1 X10'3 (0-0.2); BASOPHILS % (AUTO) 0.6 % (0-1); EOSINOPHILS # (AUTO) 0.7 X10'3 (0-0.9); EOSINOPHILS % (AUTO) 5.6 % (0-6); HEMATOCRIT 27.8 % (42.0-52.0); HEMOGLOBIN 9.3 g/dl (14.0-17.9); LYMPHOCYTES # (AUTO) 2.6 X10'3 (1.1-4.8); LYMPHOCYTES % (AUTO) 21.4 % (21-51); MEAN CORPUSCULAR HEMOGLOBIN 29.7 PG (27.0-31.0); MEAN CORPUSCULAR HGB CONC 33.4 g/dL (33.0-36.5); MEAN CORPUSCULAR VOLUME 88.8 FL (78-98); MONOCYTES # (AUTO) 0.8 X10'3 (0-0.9); NEUTROPHILS # (AUTO) 7.8 X10'3 (1.8-7.7); NEUTROPHILS % (AUTO) 65.4 % (42-75); PLATELET COUNT 272 X10'3 (140-440); RED BLOOD COUNT 3.13 X10'6 (4.70-6.10); RED CELL DISTRIBUTION WIDTH 14.8 % (11.5-14.5)
[2018-07-17 05:46] LABS: ALBUMIN 2.5 G/DL (3.4-5.0); ANION GAP 4 (8-16); BLOOD UREA NITROGEN 21 MG/DL (7-18); BUN/CREATININE RATIO 21.2 (5.4-32.0); CALCIUM 8.4 MG/DL (8.5-10.1); CHLORIDE 102 MMOL/L (99-107); CREATININE 0.99 MG/DL (0.60-1.10); GLUCOSE 102 MG/DL (70-104); MAGNESIUM 1.8 MG/DL (1.5-2.4); PHOSPHORUS 3.4 MG/DL (2.3-4.5); POTASSIUM 5.1 MMOL/L (3.5-5.1); SODIUM 134 MMOL/L (135-145); TOTAL CARBON DIOXIDE 27.9 MMOL/L (24-32); eGFR 72 ML/MIN
--- NOTE | 2018-07-17 06:30 | NUR ---
Patient was transferred in stable condition to PCU room 3011. He tolerated the move well. Report was given to Ely MOORE.
--- NOTE | 2018-07-17 06:34 | NUR ---
Patient in room PCU 3011. I have received report from Kathryn MOORE and had the opportunity to ask questions and assume patient care. Urostomy bag patent, draining. Patient oriented to room and call light. Chest tube sites with mild drainage, will continue to monitor.
[2018-07-17] MEDS: docusate sod 100mg capsule PO SCH ×2 (08:00→20:56)
[2018-07-17] MEDS: duloxetine 30mg CAPSULE.DR PO SCH (08:00)
[2018-07-17] MEDS: potassium Cl 20 mEq SR tablet PO SCH ×2 (08:01→18:48)
[2018-07-17] MEDS: magnesium Cl slow-release 64mg tablet PO SCH ×2 (08:01→20:56)
[2018-07-17] MEDS: atorvastatin 10mg tablet PO SCH (08:01)
[2018-07-17] MEDS: pantoprazole 40mg Tablet.DR PO SCH (08:01)
[2018-07-17] MEDS: metoprolol tartrate 12.5mg (1/2 tablet) PO SCH ×2 (08:02→20:56)
[2018-07-17] MEDS: aspirin 81mg tab.chew PO SCH (08:02)
[2018-07-17] MEDS: High Protein Shake w/Arg/Glut/Ca2+Bmb (Juven 19.3gm) pkt 240ml PO SCH ×3 (08:24→18:00)
[2018-07-17] MEDS: K and/or MAG REPLACEMENT MC SCH (08:25)
--- NOTE | 2018-07-17 18:24 | NUR ---
Orientee documentation: I have reviewed and agree with all interventions, assessments performed and documented by Fabienne MOORE. Orientee Medication Administration: For this medication-pass time frame, all medication were reviewed, dispensed, administered and documented per hospital policy by Fabienne MOORE.
--- NOTE | 2018-07-17 18:25 | NUR ---
Patient in room PCU 3011. I have received report from OSCAR Graves and had the opportunity to ask questions and assume patient care.
[2018-07-18 03:00] VITALS: BP 134/70
[2018-07-18 05:17] LABS: ALBUMIN 2.4 G/DL (3.4-5.0); ANION GAP 5 (8-16); BLOOD UREA NITROGEN 20 MG/DL (7-18); BUN/CREATININE RATIO 19.2 (5.4-32.0); CALCIUM 8.6 MG/DL (8.5-10.1); CHLORIDE 102 MMOL/L (99-107); CREATININE 1.04 MG/DL (0.60-1.10); GLUCOSE 98 MG/DL (70-104); POTASSIUM 4.6 MMOL/L (3.5-5.1); SODIUM 134 MMOL/L (135-145); TOTAL CARBON DIOXIDE 26.6 MMOL/L (24-32); eGFR 68 ML/MIN
--- NOTE | 2018-07-18 06:08 | NUR ---
Problems reprioritized. Patient report given, questions answered & plan of care reviewed with OSCAR Graves.
--- NOTE | 2018-07-18 06:20 | NUR ---
Patient in room PCU 3011. I have received report from Silvia MOORE and had the opportunity to ask questions and assume patient care.
[2018-07-18 07:00] VITALS: BP 129/68
[2018-07-18] MEDS: High Protein Shake w/Arg/Glut/Ca2+Bmb (Juven 19.3gm) pkt 240ml PO SCH ×2 (08:00→13:01)
--- NOTE | 2018-07-18 08:50 | NUR ---
Patient transferred to ACCE unit. Report given to Winnie MOORE. Patient transferred from wheelchair to hospital bed using sternal precautions.
[2018-07-18] MEDS: atorvastatin 10mg tablet PO SCH (09:03)
[2018-07-18] MEDS: pantoprazole 40mg Tablet.DR PO SCH (09:03)
[2018-07-18] MEDS: docusate sod 100mg capsule PO SCH (09:04)
[2018-07-18] MEDS: metoprolol tartrate 12.5mg (1/2 tablet) PO SCH (09:04)
[2018-07-18] MEDS: famotidine 20mg tablet PO SCH (09:04)
[2018-07-18] MEDS: aspirin 81mg tab.chew PO SCH (09:04)
[2018-07-18] MEDS: duloxetine 30mg CAPSULE.DR PO SCH (09:04)
[2018-07-18] MEDS: magnesium Cl slow-release 64mg tablet PO SCH (09:07)
[2018-07-18 09:10] VITALS: BP 115/66
[2018-07-18] MEDS: potassium Cl 20 mEq SR tablet PO SCH (09:16)
[2018-07-18] MEDS: K and/or MAG REPLACEMENT MC SCH (09:16)
[2018-07-18 11:00] VITALS: BP 118/71
--- NOTE | 2018-07-18 13:10 | NUR ---
Problems reprioritized. Patient report given, questions answered & plan of care reviewed with Hoa MOORE at [facility]. Patient picked up by [employer]. IV removed with the tip intact. All belongings left with the patient. and daughter accompanied patient out of hospital.
== END 2018-07-18 13:10 | DRG 233 ==
LOC: SSTAY O 06:05 → MED 3N 18:10 → ICU 2S 07-10 09:52 → MED 3N 07-14 12:15 → PCU 3S 07-17 05:44 → MED 3N 07-18 08:45
PROVIDERS: ADMIT Thoracic Surgery (Cardiothoracic Vascular Surgery); ATTEND Thoracic Surgery (Cardiothoracic Vascular Surgery)
PROC: 4A023N8 Measurement of Cardiac Sampling and Pressure, Bilateral, Percutaneous Approach (ICD-10-PCS; 2018-07-09)
PROC: B2111ZZ Fluoroscopy of Multiple Coronary Arteries using Low Osmolar Contrast (ICD-10-PCS; 2018-07-09)
PROC: B2151ZZ Fluoroscopy of Left Heart using Low Osmolar Contrast (ICD-10-PCS; 2018-07-09)
PROC: B31N1ZZ Fluoroscopy of Other Upper Arteries using Low Osmolar Contrast (ICD-10-PCS; 2018-07-09)
PROC: 021209W Bypass Coronary Artery, Three Arteries from Aorta with Autologous Venous Tissue, Open Approach (ICD-10-PCS; 2018-07-10)
PROC: 06BQ4ZZ Excision of Left Saphenous Vein, Percutaneous Endoscopic Approach (ICD-10-PCS; 2018-07-10)
PROC: 02QX0ZZ Repair Thoracic Aorta, Ascending/Arch, Open Approach (ICD-10-PCS; 2018-07-10)
PROC: 30233K1 Transfusion of Nonautologous Frozen Plasma into Peripheral Vein, Percutaneous Approach (ICD-10-PCS; 2018-07-10)
PROC: 30233N1 Transfusion of Nonautologous Red Blood Cells into Peripheral Vein, Percutaneous Approach (ICD-10-PCS; 2018-07-10)
PROC: 30233R1 Transfusion of Nonautologous Platelets into Peripheral Vein, Percutaneous Approach (ICD-10-PCS; 2018-07-10)
PROC: 30233M1 Transfusion of Nonautologous Plasma Cryoprecipitate into Peripheral Vein, Percutaneous Approach (ICD-10-PCS; 2018-07-10)
PROC: 5A1221Z Performance of Cardiac Output, Continuous (ICD-10-PCS; 2018-07-10)
PROC: 02HV33Z Insertion of Infusion Device into Superior Vena Cava, Percutaneous Approach (ICD-10-PCS; 2018-07-10)
PROC: 4A133B3 Monitoring of Arterial Pressure, Pulmonary, Percutaneous Approach (ICD-10-PCS; 2018-07-10)
PROC: 02HP32Z Insertion of Monitoring Device into Pulmonary Trunk, Percutaneous Approach (ICD-10-PCS; 2018-07-10)
PROC: 02100Z9 Bypass Coronary Artery, One Artery from Left Internal Mammary, Open Approach (ICD-10-PCS; principal; 2018-07-10 07:01)
PROC: 30233N1 Transfusion of Nonautologous Red Blood Cells into Peripheral Vein, Percutaneous Approach (ICD-10-PCS; 2018-07-11)
DX: I25.118 Atherosclerotic heart disease of native coronary artery with other forms of angina pectoris (principal); R57.1 Hypovolemic shock; J90 Pleural effusion, not elsewhere classified; E78.5 Hyperlipidemia, unspecified; I12.9 Hypertensive chronic kidney disease with stage 1 through stage 4 chronic kidney disease, or unspecified chronic kidney disease; K21.9 Gastro-esophageal reflux disease without esophagitis; N18.3 Chronic kidney disease, stage 3 (moderate); R00.1 Bradycardia, unspecified; E87.70 Fluid overload, unspecified; Z90.5 Acquired absence of kidney; Z87.891 Personal history of nicotine dependence; Z85.51 Personal history of malignant neoplasm of bladder; Z86.73 Personal history of transient ischemic attack (TIA), and cerebral infarction without residual deficits; Y92.89 Other specified places as the place of occurrence of the external cause
CPT/HCPCS: 36415; 36600; 71045; 71046; 80048; 80053; 80061; 82330; 82435; 82803; 82947; 82948; 83036; 83605; 83735; 84100; 84132; 84295; 85014; 85018; 85025; 85027; 85347; 85384; 85610; 85730; 86885; 86900; 86901; 86920; 87070; 93005; 93312; 93325; 93460; 93880; 93971; 94002; 94003; 94668; 94760; 97110; 97116; 97162; 97530; 99152; 99153; A6255; A6257; A6258; A6449; A7000; A7048; C1751; C1769; C1894; C9113; G0378; J0690; J1265; J1644; J1650; J1815; J1940; J2001; J2060; J2150; J2250; J2270; J2370; J2405; J2704; J2720; J2795; J2930; J3010; J3370; J3475; J3480; J3490; J7030; J7060; J7120; P9012; P9016; P9035; P9045; P9047; P9059; Q0163; Q9967

== ENCOUNTER 2021-10-29 07:47 | Emergency (ER) | payer OTHER, MEDICARE ==
[~2021-10-29] VITALS: Ht 172.7 cm; Wt 72.7 kg
[~2021-10-29 07:47] MED LIST: ASPI-611 PO; CLOP75TA15 PO; DOCU100C40 PO; DULO-31 PO; FERR325T28 PO; LOP12.5T PO; PANT40TA54 PO; QUET25TA PO; ROSU20TA2 PO; SENN8.6T19 PO
[2021-10-29 09:40] LABS: BASOPHILS # (AUTO) 0.1 X10'3 (0-0.2); BASOPHILS % (AUTO) 1.1 % (0-1); EOSINOPHILS # (AUTO) 0.3 X10'3 (0-0.9); EOSINOPHILS % (AUTO) 3.9 % (0-6); HEMATOCRIT 34.4 % (42.0-52.0); HEMOGLOBIN 11.5 g/dl (14.0-17.9); LYMPHOCYTES # (AUTO) 1.8 X10'3 (1.1-4.8); MEAN CORPUSCULAR HEMOGLOBIN 30.4 PG (27.0-31.0); MEAN CORPUSCULAR HGB CONC 33.4 g/dL (33.0-36.5); MEAN CORPUSCULAR VOLUME 91.1 FL (78-98); MEAN PLATELET VOLUME 7.4 FL (7.4-10.4); MONOCYTES # (AUTO) 0.4 X10'3 (0-0.9); MONOCYTES % (AUTO) 5.2 % (2-12); NEUTROPHILS # (AUTO) 4.8 X10'3 (1.8-7.7); NEUTROPHILS % (AUTO) 64.8 % (42-75); PLATELET COUNT 320 X10'3 (140-440); RED BLOOD COUNT 3.78 X10'6 (4.70-6.10); RED CELL DISTRIBUTION WIDTH 14.1 % (11.5-14.5); WHITE BLOOD COUNT 7.4 X10'3 (4.5-11.0)
[2021-10-29 09:41] LABS: ALBUMIN 3.4 G/DL (3.4-5.0); ANION GAP 7 (8-16); BLOOD UREA NITROGEN 15 MG/DL (7-18); BUN/CREATININE RATIO 11.5 (5.4-32.0); CALCIUM 9.1 MG/DL (8.5-10.1); CHLORIDE 107 MMOL/L (99-107); CREATININE 1.31 MG/DL (0.60-1.10); GLUCOSE 100 MG/DL (70-104); POTASSIUM 4.1 MMOL/L (3.5-5.1); SODIUM 140 MMOL/L (135-145); TOTAL CARBON DIOXIDE 26.4 MMOL/L (24-32); eGFR 52 ML/MIN
--- NOTE | 2021-10-29 11:07 | NUR ---
PATIENT REMAINS IN STABLE CONDITION. CONTINUES TO ASK WHEN HE WILL GET BACK HOME. HE IS ORIENTED TO HIMSELF, PLEASANTLY CONFUSED. VITAL SIGNS ARE STABLE. MONITORING ONGOING
[2021-10-29 12:30] LABS: CLARITY,URINE CLOUDY (Clear); COLOR,URINE YELLOW (Yellow); GLUCOSE, URINE NEGATIVE (Neg); KETONES,URINE NEGATIVE (Neg); LEUKOCYTE ESTERASE ,URINE NEGATIVE (Neg); NITRITES, URINE NEGATIVE (Neg); OCCULT BLOOD,URINE NEGATIVE (Neg); PH,URINE >=9.0 (4.8-8.0); PROTEIN,URINE TRACE mg/dl (Neg); UROBILINOGEN,URINE 0.2 E.U/dL (0.2-1.0)
--- NOTE | 2021-10-29 12:31 | NUR ---
Pt d/c home with family in good condition,instructions given, pt verbalized understanding.
[2021-10-29 12:34] VITALS: BP 142/80
[2021-10-29 12:34] LABS: UA COLLECTION TYPE OTHER
[2021-10-29 12:39] LABS: TRIPLE PHOSPHATE CRYST 4+ /HPF (NEGATIVE)
[2021-10-29 12:40] LABS: BACTERIA,URINE 3+ /HPF (Neg); RBC,URINE 0-2 /HPF (0-2); SQUAMOUS EPITHELIAL CELL,UR FEW /LPF (FEW)
[2021-10-29] MEDS ORDERED: SULF1TAB49 PO (12:57)
== END 2021-10-29 12:37 | disposition home or self-care (01) ==
LOC: ER 07:47
DX: D64.9 Anemia, unspecified (principal); R03.0 Elevated blood-pressure reading, without diagnosis of hypertension; N39.0 Urinary tract infection, site not specified; I25.10 Atherosclerotic heart disease of native coronary artery without angina pectoris; Z86.73 Personal history of transient ischemic attack (TIA), and cerebral infarction without residual deficits; Z95.5 Presence of coronary angioplasty implant and graft; Z79.82 Long term (current) use of aspirin; Z79.899 Other long term (current) drug therapy; Z88.8 Allergy status to other drugs, medicaments and biological substances
CPT/HCPCS: 36415; 80048; 81001; 85025; 87077; 87088; 87186; 99284

== ENCOUNTER 2022-10-04 17:08 | Emergency (ER) | payer OTHER, MEDICARE ==
[~2022-10-04] VITALS: Ht 172.7 cm; Wt 95.0 kg
[~2022-10-04 17:08] MED LIST changes: -ASPI-611 PO
[2022-10-04 17:30] VITALS: BP 124/70
[2022-10-04] MEDS ORDERED: cephalexin 250mg capsule PO ONE (19:10)
[2022-10-04 20:58] LABS: CLARITY,URINE CLOUDY (Clear); COLOR,URINE YELLOW (Yellow); GLUCOSE, URINE NEGATIVE (Neg); KETONES,URINE NEGATIVE (Neg); LEUKOCYTE ESTERASE ,URINE TRACE (Neg); NITRITES, URINE POSITIVE (Neg); OCCULT BLOOD,URINE NEGATIVE (Neg); PH,URINE 8.5 (4.8-8.0); PROTEIN,URINE TRACE mg/dl (Neg); UROBILINOGEN,URINE 0.2 E.U/dL (0.2-1.0)
[2022-10-04 21:08] LABS: UA COLLECTION TYPE OTHER
[2022-10-04] MEDS ORDERED: CEPH-585 PO (21:11)
[2022-10-04 21:16] LABS: BACTERIA,URINE 4+ /HPF (Neg)
[2022-10-04 21:17] LABS: TRIPLE PHOSPHATE CRYST 4+ /HPF (NEGATIVE)
[2022-10-04 21:18] LABS: AMORPHOUS PHOSPHATES 4+
[2022-10-04 21:19] LABS: RBC,URINE 0-2 /HPF (0-2); SQUAMOUS EPITHELIAL CELL,UR NONE SEEN /LPF (FEW); WBC,URINE 0-4 /HPF (0-4)
== END 2022-10-05 03:54 | disposition home or self-care (01) ==
LOC: ER 17:09
DX: N39.0 Urinary tract infection, site not specified (principal); I11.9 Hypertensive heart disease without heart failure; Z88.8 Allergy status to other drugs, medicaments and biological substances; Z79.899 Other long term (current) drug therapy; Z79.1 Long term (current) use of non-steroidal anti-inflammatories (NSAID); Z79.2 Long term (current) use of antibiotics
CPT/HCPCS: 81001; 99283